=== PATIENT | male | born 1990 | race American Indian/Alaskan Native ===

== ENCOUNTER 2019-12-19 22:41 | Emergency (ER) | payer MEDICARE ==
[2019-12-19] MEDS ORDERED: ZIPRASIDONE MESYLATE 20 MG VIAL IM ONE (22:55)
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
[2019-12-20 00:18] LABS: Basophils # (Auto) 0.1 K/mm3 (0.0-0.1); Basophils % (Auto) 0.8 % (0.0-1.8); Eosinophils # (Auto) 0.1 K/mm3 (0.0-0.4); Eosinophils % (Auto) 1.1 % (0.0-4.3); Hematocrit 40.8 % (35.5-45.6); Hemoglobin 13.5 gm/dl (11.8-15.2); Lymphocytes # (Auto) 3.5 K/mm3 (1.2-5.4); Lymphocytes % (Auto) 27.7 % (13.4-35.0); Mean Corpuscular HGB Conc 33 % (32-34); Mean Corpuscular Volume 84 fl (84-94); Monocytes # (Auto) 0.9 K/mm3 (0.0-0.8); Platelet Count 261 K/mm3 (140-440); Red Blood Count 4.88 M/mm3 (3.65-5.03); Red Cell Distribution Width 15.5 % (13.2-15.2)
[2019-12-20 00:31] LABS: Blood Urea Nitrogen 4 mg/dL (9-20); Calcium 9.2 mg/dL (8.4-10.2); Hemolysis Index 7
[2019-12-20 00:52] LABS: BUN/Creatinine Ratio 6
[2019-12-20 01:25] LABS: Bilirubin,Urine NEG (Negative); Blood,Urine SM (Negative); Color,Urine Colorless (Yellow); Protein,Urine <15 mg/dL mg/dL (Negative); Urobilinogen,Urine < 2.0 mg/dL (<2.0); WBC,Urine < 1.0 /HPF (0.0-6.0)
[2019-12-20 01:33] LABS: Amphetamine Screen,Urine PRESUMPTIVE NEGATIVE; Benzodiazepines Screen,Urine PRESUMPTIVE NEGATIVE; Cannabinoid Screen,Urine PRESUMPTIVE NEGATIVE; Cocaine Screen,Urine PRESUMPTIVE NEGATIVE; Methadone Screen,Urine PRESUMPTIVE NEGATIVE; Opiate Screen,Urine PRESUMPTIVE NEGATIVE
[2019-12-20] MEDS ORDERED: ZIPRASIDONE MESYLATE 20 MG VIAL IM ONE (03:17)
[2019-12-20 08:49] VITALS: BP 121/68
[2019-12-20] MEDS ORDERED: HALOPERIDOL LACTATE 5 MG/1 ML INJ IM PRN (14:07)
[2019-12-20] MEDS ORDERED: hydrOXYzine PAMOATE 25 MG CAP PO PRN (14:07)
[2019-12-20] MEDS ORDERED: LORazepam 2 MG/ML VIAL IM PRN (14:07)
[2019-12-20] MEDS ORDERED: HALOPERIDOL LACTATE 5 MG/1 ML INJ ONE (14:08)
== END 2019-12-20 16:16 ==
LOC: ED 22:41
DX: F25.0 Schizoaffective disorder, bipolar type (principal); R45.1 Restlessness and agitation
CPT/HCPCS: 36415; 80048; 80307; 81001; 85025; 96372; 99285; J1630; J2060; J3486; 80320; G0480

== ENCOUNTER 2020-05-20 15:51 | Inpatient (IN) | payer MEDICARE ==
--- NOTE | 2020-05-20 16:42 | Event Note ---
ED Screening Note Date of service: 05/20/20 Time: 16:41 ED Screening Note: 29-year-old male presents the emergency department chief complaint of bilateral lower extremity swelling, abdominal swelling, shortness of breath. Patient is from a transitional home. Denies any history of congestive heart failure. Exam is consistent with significant diffuse edema bilateral lower extremities extending all the way up to the mid abdomen. The patient has labored breathing. Lung sounds are diminished bilaterally. He is tachycardic. Requested bed from charge nurse immediately. This initial assessment/diagnostic orders/clinical plan/treatment(s) is/are subject to change based on patients health status, clinical progression and re- assessment by fellow clinical providers in the ED. Further treatment and workup at subsequent clinical providers discretion. Patient/guardian urged not to elope from the ED as their condition may be serious if not clinically assessed and managed. Initial orders include: Cardiac work-up, BNP
[2020-05-20] MEDS ORDERED: ALBUTEROL 2.5 MG/3 ML NEBU IH ONE (17:23)
[2020-05-20] MEDS ORDERED: IPRATROPIUM 0.02% NEBU 2.5 ML IH ONE (17:23)
[2020-05-20] MEDS ORDERED: FUROSEMIDE 40 MG/4 ML INJ IV ONE ×2 (17:23→18:20)
--- NOTE | 2020-05-20 17:28 | Emergency Department Report ---
ED Shortness of Breath HPI - General Chief Complaint: Dyspnea/Respdistress Stated Complaint: ALLERGIC REACTION Time Seen by Provider: 05/20/20 17:23 Source: patient Mode of arrival: Wheelchair Limitations: No Limitations - History of Present Illness Initial Comments: Patient is a 29-year-old F [place] male with no known past medical history except for obesity who is presenting with shortness of breath and fluid retention. Patient states that approximately 2 weeks ago he started taking Hydroxycut and attempt to lose weight. Patient states over the last 3 to 4 days he has had progressively severely worsening shortness of breath and swelling. States the swelling now is through his abdomen down to his bilateral lower extremities including the groin. States he can not lay flat but can't sit up straight either. States he is very short of breath when lying flat but when attempting to sit straight up feels as though his abdomen is hindering him from sitting position. He denies any fevers chills nausea vomiting or diarrhea. Did have some abdominal discomfort as well that is associated with the swelling. - Related Data Home Medications Medication Instructions Recorded Confirmed Last Taken [place] Carbonate ER [Lithobid ER] 300 mg PO BID 12/20/19 12/20/19 Unknown Paliperidone Palmitate [Invega 156 mg IM QMONTH 12/20/19 12/20/19 Unknown Sustenna] buPROPion [Wellbutrin] 100 mg PO DAILY 12/20/19 12/20/19 Unknown hydrOXYzine PAMOATE [Vistaril] 25 mg PO Q6HR PRN 12/20/19 12/20/19 Unknown Allergies Allergy/AdvReac Type Severity Reaction Status Date / Time No Known Allergies Allergy Verified 12/20/19 03:26 ED Review of Systems ROS: Stated complaint: ALLERGIC REACTION Other details as noted in HPI Comment: All other systems reviewed and negative ED Past Medical Hx - Past Medical History Previous Medical History?: Yes Hx Psychiatric Treatment: Yes (bipolar, schizophrenia) - Surgical History Past Surgical History?: No - Medications Home Medications: Home Medications Medication Instructions Recorded Confirmed Last Taken Type Terra Bella Carbonate ER [Lithobid ER] 300 mg PO BID 12/20/19 12/20/19 Unknown History Paliperidone Palmitate [Invega 156 mg IM QMONTH 12/20/19 12/20/19 Unknown History Sustenna] buPROPion [Wellbutrin] 100 mg PO DAILY 12/20/19 12/20/19 Unknown History hydrOXYzine PAMOATE [Vistaril] 25 mg PO Q6HR PRN 12/20/19 12/20/19 Unknown History ED Physical Exam - General Limitations: No Limitations General appearance: alert, in distress - Head Head exam: Present: atraumatic, normocephalic - Eye Eye exam: Present: normal appearance, PERRL, EOMI - ENT ENT exam: Present: mucous membranes moist - Neck Neck exam: Present: normal inspection - Respiratory Respiratory exam: Present: respiratory distress, wheezes, rales. Absent: normal lung sounds bilaterally, rhonchi, stridor - Cardiovascular Cardiovascular Exam: Present: normal rhythm, tachycardia, normal heart sounds. Absent: systolic murmur, diastolic murmur, rubs, gallop - GI/Abdominal GI/Abdominal exam: Present: distended, normal bowel sounds. Absent: tenderness, guarding, rebound - Rectal Rectal exam: Present: deferred - Extremities Exam Extremities exam: Present: normal inspection, other (3+ edema to the bilateral lower extremities all the way up through the groin.) - Back Exam Back exam: Present: normal inspection - Neurological Exam Neurological exam: Present: alert, oriented X3 - Psychiatric Psychiatric exam: Present: normal affect, normal mood - Skin Skin exam: Present: warm, dry, intact, normal color. Absent: rash ED Course Vital Signs 05/20/20 05/20/20 16:37 18:17 Temperature 98.5 F Pulse Rate 126 H 126 H Respiratory 26 H Rate Blood Pressure 161/78 [Left] O2 Sat by Pulse 95 Oximetry ED Medical Decision Making - Lab Data Result diagrams: 05/20/20 16:42 05/20/20 16:42 - EKG Data -: EKG Interpreted by Mn - EKG Data 05/20/20 17:29 EKG shows a sinus tachycardia 121. [place] is normal intervals are normal. Is no ST segment elevations or depressions. There is some diffuse nonspecific T wave flattening. Time of interpretation 5559 - Radiology Data [facility] [address] [place] [address] XRay Report Signed Patient: MATTHEW PRASAD Corrine#: [id number] : 1990 Acct:[id number] Age/Sex: 29 / M ADM Date: 05/20/20 Loc: ED Attending Dr: Ordering Physician: KAI WHITAKER Date of Service: 05/20/20 Procedure(s): XR chest 1V ap Accession Number(s): [id number] cc: KAI WHITAKER Fluoro Time In Minutes: CHEST 1 VIEW 05/20/2020 5:14 PM INDICATION / CLINICAL INFORMATION: Dyspnea. COMPARISON: None available. FINDINGS: SUPPORT DEVICES: None. HEART / MEDIASTINUM: The cardiac silhouette is at the upper limits of normal size. There is central vascular congestion. LUNGS / PLEURA: There are mild bilateral interstitial opacities with more dense opacities noted along the right lung base. The right hemidiaphragm is elevated. No significant pleural effusion. No pneumothorax. ADDITIONAL FINDINGS: No significant additional findings. IMPRESSION: Prominent cardiac silhouette with central vascular congestion and probable pulm onary edema. Please correlate with the clinical findings. Signer Name: Neftali Clark MD Signed: 05/20/2020 5:49 PM Workstation Name: [id number] - Medical Decision Making Patient laboratory studies show no evidence of renal or liver failure. Patient does have significant pulmonary edema and anasarca. Patient be admitted for IV Lasix and he will definitely need a echocardiogram to determine the level of heart failure. Patient be admitted to the hospitalist service at this time. Critical Care Time: Yes (30) Critical care attestation.: If time is entered above; I have spent that time in minutes in the direct care of this critically ill patient, excluding procedure time. ED Disposition Clinical Impression: New onset of congestive heart failure, Acute respiratory distress Pulmonary edema Qualifiers: Chronicity: acute Qualified Code(s): J81.0 - Acute pulmonary edema Disposition: OP ADMIT IP TO THIS HOSP Is pt being admited?: Yes Does the pt Need Aspirin: No Condition: Stable Instructions: Pulmonary Edema (ED) Time of Disposition: 18:26
[2020-05-20 17:33] LABS: Basophils # (Auto) 0.2 K/mm3 (0.0-0.1); Basophils % (Auto) 1.5 % (0.0-1.8); Eosinophils # (Auto) 0.2 K/mm3 (0.0-0.4); Eosinophils % (Auto) 1.7 % (0.0-4.3); Hematocrit 34.7 % (35.5-45.6); Hemoglobin 11.2 gm/dl (11.8-15.2); Lymphocytes # (Auto) 2.4 K/mm3 (1.2-5.4); Lymphocytes % (Auto) 17.2 % (13.4-35.0); Mean Corpuscular HGB Conc 32 % (32-34); Mean Corpuscular Volume 86 fl (84-94); Monocytes # (Auto) 1.3 K/mm3 (0.0-0.8); Monocytes % (Auto) 9.4 % (0.0-7.3); Platelet Count 324 K/mm3 (140-440); Red Blood Count 4.04 M/mm3 (3.65-5.03); Red Cell Distribution Width 15.7 % (13.2-15.2)
[2020-05-20 17:48] LABS: INR 0.96 (0.87-1.13)
[2020-05-20 17:53] LABS: Alanine Aminotransferase 6 units/L (7-56); Albumin 1.6 g/dL (3.9-5); Blood Urea Nitrogen 10 mg/dL (9-20); Calcium 7.6 mg/dL (8.4-10.2); Hemolysis Index 21
--- NOTE | 2020-05-20 17:53 | XRay Report ---
CHEST 1 VIEW 05/20/2020 5:14 PM INDICATION / CLINICAL INFORMATION: Dyspnea. COMPARISON: None available. FINDINGS: SUPPORT DEVICES: None. HEART / MEDIASTINUM: The cardiac silhouette is at the upper limits of normal size. There is central v ascular congestion. LUNGS / PLEURA: There are mild bilateral interstitial opacities with more dense opacities noted along the right lung base. The right hemidiaphragm is elevated. No significant pleural effusion. No pneumo thorax. ADDITIONAL FINDINGS: No significant additional findings. IMPRESSION: Prominent cardiac silhouette with central vascular congestion and probable pulmonary edema. Please co rrelate with the clinical findings. Signer Name: Neftali Clark MD Signed: 05/20/2020 5:49 PM Workstation Name: [id number]
[2020-05-20 17:57] LABS: BUN/Creatinine Ratio 14
[2020-05-21] MEDS ORDERED: NITROGLYCERIN 0.4 MG TAB SUBL SL PRN (02:32)
[2020-05-21] MEDS ORDERED: ALBUTEROL 2.5 MG/3 ML NEBU IH PRN (02:37)
--- NOTE | 2020-05-21 02:44 | History and Physical Report ---
History of Present Illness Date of examination: 05/20/20 Date of admission: 05/20/20 18:26 Chief complaint: HAILEY, anasarca History of present illness: 29-year-old obese -[place] male with history of schizophrenia and bipolar disorder who presents to [facility] ED via EMS with complaints of difficulty in breathing and generalized edema. Patient complains of progressively worsening shortness of breath over the past 3 to 4 days. He states that he is on able to ambulate, or perform routine ADLs due to significant shortness of breath. Additionally he complains of generalized edema, which started in his lower extremities and has progressed up to his groin and abdomen. Endorses orthopnea, PND, and impaired mobility due to current state. Patient mentioned he started taking Hydroxycut (OTC weight loss supplement) approximately 2 weeks ago and thinks that this may have contributed to his shortness of breath and generalized edema. Denies: Cardiac history, palpitations, fever, abdominal pain, diarrhea, nausea, headache, sore throat, loss of smell/taste, recent fall/injury, recent sick contacts Past History Past Medical History: other (Bipolar, schizophrenia, obesity) Past Surgical History: No surgical history Social history: single, Lives alone, smoking, full code. denies: alcohol abuse, prescription drug abuse, IV drug use Family history: no significant family history Medications and Allergies Allergies Allergy/AdvReac Type Severity Reaction Status Date / Time No Known Allergies Allergy Verified 12/20/19 03:26 Home Medications Medication Instructions Recorded Confirmed Last Taken Type Paliperidone Palmitate [Invega 156 mg IM QMONTH 12/20/19 12/20/19 Unknown History Sustenna] Divalproex ER [DepaKOTE ER] 1,500 mg PO QHS 05/21/20 05/21/20 05/19/20 History Active Meds: Active Medications Albuterol (Albuterol 2.5 Mg/3 Ml Nebu) 2.5 mg IH Q4HRT PRN PRN Reason: Shortness Of Breath Albuterol/Ipratropium (Ipratropium/Albuterol Sulfate 3 Ml Ampul.Neb) 1 ampul IH Q4HRT LAURY Bupropion HCl (Bupropion 100 Mg Tab) 100 mg PO DAILY LAURY Carvedilol (Carvedilol 3.125 Mg Tab) 3.125 mg PO BID LAURY Furosemide (Furosemide 40 Mg/4 Ml Inj) 40 mg IV BID@0600,1800 LAURY Heparin Sodium (Porcine) (Heparin 5,000 Unit/1 Ml Vial) 5,000 unit SUB-Q Q12HR LAURY Lisinopril (Lisinopril 10 Mg Tab) 10 mg PO QDAY LAURY Nitroglycerin (Nitroglycerin 0.4 Mg Tab Subl) 0.4 mg SL .Q5MIN PRN PRN Reason: Chest Pain Review of Systems All systems: negative (Except as noted in HPI) Exam - Physical Exam Narrative exam: Physical exam General appearance: Present: Mild distress,, alert and oriented 3, adult male - EENT Eyes: Present: PERRL, EOM intact ENT: hearing intact, normal dentition - Neck Neck: Present: supple, normal ROM - Respiratory Respiratory effort: Slightly labored Respiratory: Faint bibasilar crackles, scattered wheezing - Cardiovascular Heart rate: 1098(bpm) Rhythm: Sinus tachycardia Heart Sounds: Present: S1 & S2. Absent: rub, click - Extremities Extremities: no ischemia, pulses intact, 3+ bilateral lower extremity edema extending up to the scrotum and abdomen - Peripheral Assessment Peripheral Pulses: within normal limits - Abdominal General gastrointestinal: soft, non-tender, normal bowel sounds - Integumentary Integumentary: Present: warm, dry - Musculoskeletal Musculoskeletal: Limited mobility due to current state, ambulates with cane -Neurological Neurological: CN II-XII intact - Psychiatric Psychiatric: cooperative - Constitutional Vitals: Temp Pulse Resp BP Pulse Ox 98 F 101 H 17 137/79 94 05/20/20 19:30 05/21/20 02:00 05/21/20 02:00 05/21/20 02:00 05/21/20 02:00 HEART Score - HEART Score Troponin: Troponin T < 0.010 ng/mL (0.00-0.029) 05/21/20 00:23 Results - Labs CBC & Chem 7: 05/20/20 16:42 05/20/20 16:42 Labs: Laboratory Last Values WBC 13.8 K/mm3 (4.5-11.0) H 05/20/20 16:42 RBC 4.04 M/mm3 (3.65-5.03) 05/20/20 16:42 Hgb 11.2 gm/dl (11.8-15.2) L 05/20/20 16:42 Hct 34.7 % (35.5-45.6) L 05/20/20 16:42 MCV 86 fl (84-94) 05/20/20 16:42 MCH 28 pg (28-32) 05/20/20 16:42 MCHC 32 % (32-34) 05/20/20 16:42 RDW 15.7 % (13.2-15.2) H 05/20/20 16:42 Plt Count 324 K/mm3 (140-440) 05/20/20 16:42 Lymph % (Auto) 17.2 % (13.4-35.0) 05/20/20 16:42 Gilliam % (Auto) 9.4 % (0.0-7.3) H 05/20/20 16:42 Eos % (Auto) 1.7 % (0.0-4.3) 05/20/20 16:42 Baso % (Auto) 1.5 % (0.0-1.8) 05/20/20 16:42 Lymph # (Auto) 2.4 K/mm3 (1.2-5.4) 05/20/20 16:42 Gilliam # (Auto) 1.3 K/mm3 (0.0-0.8) H 05/20/20 16:42 Eos # (Auto) 0.2 K/mm3 (0.0-0.4) 05/20/20 16:42 Baso # (Auto) 0.2 K/mm3 (0.0-0.1) H 05/20/20 16:42 Seg Neutrophils % 70.2 % (40.0-70.0) H 05/20/20 16:42 Seg Neutrophils # 9.7 K/mm3 (1.8-7.7) H 05/20/20 16:42 PT 12.7 Sec. (12.2-14.9) 05/20/20 16:42 INR 0.96 (0.87-1.13) 05/20/20 16:42 APTT 26.0 Sec. (24.2-36.6) 05/20/20 16:42 Sodium 136 mmol/L (137-145) L 05/20/20 16:42 Potassium 4.2 mmol/L (3.6-5.0) 05/20/20 16:42 Chloride 104.6 mmol/L (98-107) 05/20/20 16:42 Carbon Dioxide 23 mmol/L (22-30) 05/20/20 16:42 Anion Gap 13 mmol/L 05/20/20 16:42 BUN 10 mg/dL (9-20) 05/20/20 16:42 Creatinine 0.7 mg/dL (0.8-1.3) L 05/20/20 16:42 Estimated GFR > 60 ml/min 05/20/20 16:42 BUN/Creatinine Ratio 14 % 05/20/20 16:42 Glucose 110 mg/dL (75-100) H 05/20/20 16:42 Calcium 7.6 mg/dL (8.4-10.2) L 05/20/20 16:42 Magnesium 2.00 mg/dL (1.7-2.3) 05/20/20 16:42 Total Bilirubin < 0.20 mg/dL (0.1-1.2) 05/20/20 16:42 AST 10 units/L (5-40) 05/20/20 16:42 ALT 6 units/L (7-56) L 05/20/20 16:42 Alkaline Phosphatase 79 units/L (35-129) 05/20/20 16:42 Troponin T < 0.010 ng/mL (0.00-0.029) 05/21/20 00:23 NT-Pro-B Natriuret Pep 119.3 pg/mL (0-450) 05/20/20 19:59 Total Protein 4.6 g/dL (6.3-8.2) L 05/20/20 16:42 Albumin 1.6 g/dL (3.9-5) L 05/20/20 16:42 Albumin/Globulin Ratio 0.5 % 05/20/20 16:42 - Diagnostic Impressions Diagnostic Impressions: CXR: FINDINGS: SUPPORT DEVICES: None. HEART / MEDIASTINUM: The cardiac silhouette is at the upper limits of normal size. There is central vascular congestion. LUNGS / PLEURA: There are mild bilateral interstitial opacities with more dense opacities noted along the right lung base. The right hemidiaphragm is elevated. No significant pleural effusion. No pneumothorax. ADDITIONAL FINDINGS: No sign ificant additional findings. IMPRESSION: Prominent cardiac silhouette with central vascular congestion and probable pulmonary edema. Please correlate with the clinical findings. Assessment and Plan Assessment and plan: Acute hypoxic respiratory failure -No Baseline home oxygen requirements -Saturation in low to mid 80s on room air -?? Obesity hypoventilation syndrome, may benefit from outpatient pulmonary work-up -Currently on supplemental -Monitor saturations -Continue supplemental oxygen wean as tolerated -Scheduled duo nebs, albuterol as needed New Onset Acute Exacerbation CHF- -EF unknown -Echo pending -BNP not elevated at 119 -Troponin negative x3 -CXR shows vascular congestion -Continue IV Lasix -Start LUIS, BB -Cardiology consulted -f/u on pending labs Pulmonary edema -CXR shows vascular congestion suggestive of pulmonary edema -On examination pt has anasarca, 3+ scrotal edema -Diuresis with IV Lasix -Cardiology consulted -Leukocytosis -WBC on admission 13.8 -Afebrile -Cultures pending -Will hold off on starting abx for now -Continue to monitor CBC History of schizophrenia and bipolar disorder -Resume Wellbutrin -Home medication reconciliation will need to be completed before resuming any other antipsychotic meds -Day team may consider mental health consult Tobacco abuse -Current every day smoker -Counseled for cessation -Nicotine patch when necessary DVT PPX -On SCD's and Heparin Advance Directives: No VTE prophylaxis?: Chemical, Mechanical Reason for no VTE Prophylaxis: Anticoagulant allergy Plan of care discussed with patient/family: Yes
[2020-05-21] MEDS ORDERED: NICOTINE 14 MG/24 HR PATCH TD PRN (02:58)
[2020-05-21] MEDS: FUROSEMIDE 40 MG/4 ML INJ IV SCH ×2 (06:44→17:17)
[2020-05-21] MEDS: IPRATROPIUM/ALBUTEROL SULFATE 3 ML AMPUL.NEB IH SCH ×5 (09:04→20:12)
[2020-05-21] MEDS: LISINOPRIL 10 MG TAB PO SCH (09:12)
[2020-05-21] MEDS: carvediloL 3.125 MG TAB PO SCH ×2 (09:16→23:58)
[2020-05-21] MEDS: buPROPion 100 MG TAB PO SCH (09:16)
[2020-05-21] MEDS ORDERED: HEPARIN 5,000 UNIT/1 ML VIAL SUB-Q SCH (10:00)
[2020-05-21 10:09] LABS: Bilirubin,Urine NEG (Negative); Blood,Urine MOD (Negative); Color,Urine Yellow (Yellow); Urobilinogen,Urine < 2.0 mg/dL (<2.0)
[2020-05-21 10:16] LABS: Amphetamine Screen,Urine Negative; Benzodiazepines Screen,Urine Negative; Cannabinoid Screen,Urine Negative; Cocaine Screen,Urine Negative; Methadone Screen,Urine Negative; Opiate Screen,Urine Negative
[2020-05-21] MEDS ORDERED: HEPARIN 10,000 UNITS/10 ML VIAL IV ONE (12:08)
[2020-05-21] MEDS: HEPARIN/ 0.45% NACL DRIP 25,000 UNIT/500 ML BAG IV SCH (13:53)
[2020-05-21 14:26] LABS: Hematocrit 32.6 % (35.5-45.6); Hemoglobin 10.5 gm/dl (11.8-15.2)
[2020-05-21 14:37] LABS: INR 0.99 (0.87-1.13)
[2020-05-21 14:38] LABS: Partial Thromboplastin Time 27.8 Sec. (24.2-36.6)
--- NOTE | 2020-05-21 14:52 | Consultation ---
History of Present Illness Consult date: 05/21/20 Requesting physician: PENELOPE GRACE Consult reason: congestive heart failure History of present illness: This pt is a 29 year old male with a significant hx of morbid obesity, bipolar disorder and schizophrenia. He is previously unknown to our practice. Pt presents to [facility] with c/o SOB x 4 days and diffuse lower extremity and abd swelling. Pt states he recently began taking diet supplement Hydroxycut for the last 2 weeks. He endorsed orthopnea with SOB lying supine, but also when sitting up straight due to abd distention. He denies any prior medical issues. No Chest pain, syncope, dizziness, N/V/D or recent illness. On exam pt is noted to have diffuse anasarca to BLE and ABD. PT is admitted as a Covid PUI. CXR shows pulmonary edema. Echo is pending. BNP and troponins are noted to be normal, Ddimer is elevated on admission. Past History Past Medical History: other (Bipolar, schizophrenia, obesity) Past Surgical History: No surgical history Social history: single, Lives alone, smoking, full code. denies: alcohol abuse, prescription drug abuse, IV drug use Family history: no significant family history Medications and Allergies Allergies Allergy/AdvReac Type Severity Reaction Status Date / Time No Known Allergies Allergy Verified 12/20/19 03:26 Home Medications Medication Instructions Recorded Confirmed Last Taken Type Paliperidone Palmitate [Invega 156 mg IM QMONTH 12/20/19 05/21/20 05/10/20 History Sustenna] Divalproex ER [DepaKOTE ER] 1,500 mg PO QHS 05/21/20 05/21/20 05/19/20 History Active Meds: Active Medications Albuterol (Albuterol 2.5 Mg/3 Ml Nebu) 2.5 mg IH Q4HRT PRN PRN Reason: Shortness Of Breath Albuterol/Ipratropium (Ipratropium/Albuterol Sulfate 3 Ml Ampul.Neb) 1 ampul IH Q4HRT [facility] Last Admin: 05/21/20 14:11 Dose: 1 ampul Documented by: Bupropion HCl (Bupropion 100 Mg Tab) 100 mg PO DAILY [facility] Last Admin: 05/21/20 09:16 Dose: 100 mg Documented by: Carvedilol (Carvedilol 3.125 Mg Tab) 3.125 mg PO BID [facility] Last Admin: 05/21/20 09:16 Dose: 3.125 mg Documented by: Furosemide (Furosemide 40 Mg/4 Ml Inj) 40 mg IV BID@0600,1800 [facility] Last Admin: 05/21/20 06:44 Dose: 40 mg Documented by: Heparin Sodium (Porcine) (Heparin 10,000 Units/10 Ml Vial) 5,500 unit 40 unit/kg (5500 unit) IV Q6H PRN PRN Reason: Anti-Xa Assay < 0.1 units/ml Heparin Sodium/Sodium Chloride (Heparin/ 0.45% Nacl-25,000 Unit/500 Ml) 25,000 unit in 500 mls @ 30 mls/hr IV TITR [facility]; Protocol Last Admin: 05/21/20 13:53 Dose: 1,500 units/hr, 30 mls/hr Documented by: Lisinopril (Lisinopril 10 Mg Tab) 10 mg PO QDAY [facility] Last Admin: 05/21/20 09:12 Dose: 10 mg Documented by: Nicotine (Nicotine 14 Mg/24 Hr Patch) 14 mg TD QDAY PRN PRN Reason: smoking cessation Review of Systems Constitutional: no weight loss, no weight gain, no fever, no chills, no sweats Ears, nose, mouth and throat: no ear pain, no ear discharge, no nasal congestion, no nasal discharge, no sinus pressure Cardiovascular: orthopnea, edema, shortness of breath, leg edema, no chest pain, no palpitations, no rapid/irregular heart beat, no syncope, no lightheadedness Respiratory: sleep apnea, no cough, no hemoptysis, no shortness of breath, no dyspnea on exertion Gastrointestinal: no abdominal pain, no nausea, no vomiting, no diarrhea Musculoskeletal: no neck pain, no shooting arm pain, no arm numbness/tingling, no low back pain, no shooting leg pain, no leg numbness/tingling Integumentary: no rash, no pruritis, no redness, no sores, no wounds Neurological: no head injury, no paralysis, no weakness, no parathesias, no numbness, no tingling, no seizures, no syncope Psychiatric: no anxiety Endocrine: no cold intolerance, no heat intolerance Hematologic/Lymphatic: no easy bruising, no easy bleeding Allergic/Immunologic: no urticaria Physical Examination Last Vital Signs Temp 98.7 F 05/21/20 12:00 Pulse 118 H 05/21/20 14:40 Resp 20 05/21/20 14:40 BP 150/92 05/21/20 14:40 Pulse Ox 97 05/21/20 14:40 General appearance: mild distress HEENT: Positive: PERRL, Normocephaly, Mucus Membranes Moist Neck: Positive: neck supple, trachea midline Cardiac: Positive: Reg Rate and Rhythm, S1/S2 Lungs: Positive: clear to auscultation, Normal Breath Sounds Neuro: Positive: Grossly Intact Abdomen: Positive: Distended Skin: Negative: Rash, Wound Musculoskeletal: No Pain Extremities: Present: upper extr. pulses, lower extr. pulses, +4 Edema Results 05/21/20 13:52 05/20/20 16:42 Cardiac Enzymes 05/20/20 05/21/20 Range/Units 16:42 03:00 AST 10 (5-40) units/L Lactate Dehydrogenase 179 (91-180) units/L Coagulation 05/20/20 05/21/20 Range/Units 16:42 13:52 PT 12.7 13.0 (12.2-14.9) Sec. INR 0.96 0.99 (0.87-1.13) APTT 26.0 27.8 (24.2-36.6) Sec. CBC 05/20/20 05/21/20 Range/Units 16:42 13:52 WBC 13.8 H (4.5-11.0) K/mm3 RBC 4.04 (3.65-5.03) M/mm3 Hgb 11.2 L 10.5 L (11.8-15.2) gm/dl Hct 34.7 L 32.6 L (35.5-45.6) % Plt Count 324 290 (140-440) K/mm3 Lymph # (Auto) 2.4 (1.2-5.4) K/mm3 [place] # (Auto) 1.3 H (0.0-0.8) K/mm3 Eos # (Auto) 0.2 (0.0-0.4) K/mm3 Baso # (Auto) 0.2 H (0.0-0.1) K/mm3 Comprehensive Metabolic Panel 05/20/20 Range/Units 16:42 Sodium 136 L (137-145) mmol/L Potassium 4.2 (3.6-5.0) mmol/L Chloride 104.6 (98-107) mmol/L Carbon Dioxide 23 (22-30) mmol/L BUN 10 (9-20) mg/dL Creatinine 0.7 L (0.8-1.3) mg/dL Glucose 110 H (75-100) mg/dL Calcium 7.6 L (8.4-10.2) mg/dL AST 10 (5-40) units/L ALT 6 L (7-56) units/L Alkaline Phosphatase 79 (35-129) units/L Total Protein 4.6 L (6.3-8.2) g/dL Albumin 1.6 L (3.9-5) g/dL - Imaging and Cardiology Echo: pending EKG interpretations - Telemetry EKG Rhythm: Sinus Tachycardia Assessment and Plan This pt is a 29 year old male with a significant hx of morbid obesity, bipolar disorder and schizophrenia. He is previously unknown to our practice. Pt presents to [facility] with c/o SOB x 4 days and diffuse lower extremity and abd swelling. Pt states he recently began taking diet supplement Hydroxycut for the last 2 weeks. He endorsed orthopnea with SOB lying supine, but also when sitting up straight due to abd distention. He denies any prior medical issues. No Chest pain, syncope, dizziness, N/V/D or recent illness. On exam pt is noted to have diffuse anasarca to BLE and ABD. PT is admitted as a Covid PUI. CXR shows pulmonary edema. BNP and troponins are noted to be normal. Ddimer is noted to be elevated. Recommend Confirmatory imaging if/when pt can tolerate. Initiate heparin gtt in setting of presumed PTE. Continue diuresis. Agree with lasix 40mg IV BID. Suspect JONA. Order placed for CPAP QHS. Echo is pending. Continue supportive care. Will follow. This pt was seen in conjunction with Dr Navarrete who agrees with this assessment and plan of care. - Patient Problems (1) Allergic reaction Current Visit: Yes Status: Acute (2) Pulmonary edema Current Visit: Yes Status: Acute Qualifiers: Chronicity: acute Qualified Code(s): J81.0 - Acute pulmonary edema (3) Anasarca Current Visit: Yes Status: Acute (4) Morbid obesity Current Visit: Yes Status: Chronic (5) Schizophrenia Current Visit: Yes Status: Chronic (6) Bipolar 1 disorder Current Visit: Yes Status: Chronic
--- NOTE | 2020-05-21 15:45 | Progress Note ---
Assessment and Plan Assessment and plan: 29-year-old obese -Marshallese male with history of schizophrenia and bipolar disorder who presents to [facility] ED via EMS with complaints of difficulty in breathing and generalized edema. Patient was taking Hydroxycut (OTC weight loss supplement) approximately 2 weeks ago, believes this has something to do with this anasarca. Patient admitted for heart failure work-up. Acute hypoxic respiratory failure -Continue supplemental oxygen wean as tolerated -Scheduled duo nebs, albuterol as needed CTA pending to rule out PE Elevated D-dimer CTA pending to r/o PE New Onset Acute Exacerbation CHF -Echo pending -BNP not elevated at 119 -Troponin negative x3 -CXR shows vascular congestion -Continue IV Lasix -Start LUIS, BB -Cardiology consulted Pulmonary edema -CXR shows vascular congestion suggestive of pulmonary edema -On examination pt has anasarca, 3+ scrotal edema -Diuresis with IV Lasix -Cardiology consulted -Leukocytosis -WBC on admission 13.8 Covid negative -Afebrile -Blood cultures pending -Continue to monitor CBC History of schizophrenia and bipolar disorder -Resume Wellbutrin -Home medication reconciliation will need to be completed before resuming any other antipsychotic meds Mood is stable Tobacco abuse -Counseled for cessation -Nicotine patch as needed DVT PPX -On SCD's and Heparin History Interval history: 05/21 patient seen, continues to have significant anasarca. Patient is refusing Moe catheter. Hospitalist Physical - Physical exam Narrative exam: General appearance: Morbidly obese, no acute distress, well-nourished EENT: PERRL, EOM intact, hearing intact, clear oral mucosa, dentition normal Respiratory: bilateral: Diminished breath sounds due to body habitus, negative: rales, rhonchi, wheezing Cardiovascular: Regular rate/rhythm, Normal S1 & S2. No gallop, rub Extremities: Severe bilateral edema in lower extremities Abdominal: soft, firm, diminished bowel sounds : Significant scrotal edema and penile edema Psychiatric: appropriate mood/affect, intact judgment & insight Neurologic: CNII-XII intact, moves all extremities - Constitutional Vitals: Temp Pulse Resp BP Pulse Ox 98.7 F 118 H 20 150/92 97 05/21/20 12:00 05/21/20 14:40 05/21/20 14:40 05/21/20 14:40 05/21/20 14:40 General appearance: Present: mild distress HEART Score - HEART Score Troponin: Troponin T < 0.010 ng/mL (0.00-0.029) 05/21/20 00:23 Results - Labs CBC & Chem 7: 05/21/20 13:52 05/20/20 16:42 Labs: Laboratory Last Values WBC 13.8 K/mm3 (4.5-11.0) H 05/20/20 16:42 RBC 4.04 M/mm3 (3.65-5.03) 05/20/20 16:42 Hgb 10.5 gm/dl (11.8-15.2) L 05/21/20 13:52 Hct 32.6 % (35.5-45.6) L 05/21/20 13:52 MCV 86 fl (84-94) 05/20/20 16:42 MCH 28 pg (28-32) 05/20/20 16:42 MCHC 32 % (32-34) 05/20/20 16:42 RDW 15.7 % (13.2-15.2) H 05/20/20 16:42 Plt Count 290 K/mm3 (140-440) 05/21/20 13:52 Lymph % (Auto) 17.2 % (13.4-35.0) 05/20/20 16:42 [place] % (Auto) 9.4 % (0.0-7.3) H 05/20/20 16:42 Eos % (Auto) 1.7 % (0.0-4.3) 05/20/20 16:42 Baso % (Auto) 1.5 % (0.0-1.8) 05/20/20 16:42 Lymph # (Auto) 2.4 K/mm3 (1.2-5.4) 05/20/20 16:42 [place] # (Auto) 1.3 K/mm3 (0.0-0.8) H 05/20/20 16:42 Eos # (Auto) 0.2 K/mm3 (0.0-0.4) 05/20/20 16:42 Baso # (Auto) 0.2 K/mm3 (0.0-0.1) H 05/20/20 16:42 Seg Neutrophils % 70.2 % (40.0-70.0) H 05/20/20 16:42 Seg Neutrophils # 9.7 K/mm3 (1.8-7.7) H 05/20/20 16:42 PT 13.0 Sec. (12.2-14.9) 05/21/20 13:52 INR 0.99 (0.87-1.13) 05/21/20 13:52 APTT 27.8 Sec. (24.2-36.6) 05/21/20 13:52 D-Dimer 3507.99 ng/mlDDU (0-234) H 05/21/20 04:45 Sodium 136 mmol/L (137-145) L 05/20/20 16:42 Potassium 4.2 mmol/L (3.6-5.0) 05/20/20 16:42 Chloride 104.6 mmol/L (98-107) 05/20/20 16:42 Carbon Dioxide 23 mmol/L (22-30) 05/20/20 16:42 Anion Gap 13 mmol/L 05/20/20 16:42 BUN 10 mg/dL (9-20) 05/20/20 16:42 Creatinine 0.7 mg/dL (0.8-1.3) L 05/20/20 16:42 Estimated GFR > 60 ml/min 05/20/20 16:42 BUN/Creatinine Ratio 14 % 05/20/20 16:42 Glucose 110 mg/dL (75-100) H 05/20/20 16:42 Hemoglobin A1c 5.5 % (4-6) 05/21/20 03:00 Lactic Acid 1.00 mmol/L (0.7-2.0) 05/21/20 03:00 Calcium 7.6 mg/dL (8.4-10.2) L 05/20/20 16:42 Magnesium 2.00 mg/dL (1.7-2.3) 05/20/20 16:42 Ferritin 147.0 ng/mL (30.0-300.0) 05/21/20 03:00 Total Bilirubin < 0.20 mg/dL (0.1-1.2) 05/20/20 16:42 AST 10 units/L (5-40) 05/20/20 16:42 ALT 6 units/L (7-56) L 05/20/20 16:42 Alkaline Phosphatase 79 units/L (35-129) 05/20/20 16:42 Lactate Dehydrogenase 179 units/L (91-180) 05/21/20 03:00 Troponin T < 0.010 ng/mL (0.00-0.029) 05/21/20 00:23 NT-Pro-B Natriuret Pep 119.3 pg/mL (0-450) 05/20/20 19:59 Total Protein 4.6 g/dL (6.3-8.2) L 05/20/20 16:42 Albumin 1.6 g/dL (3.9-5) L 05/20/20 16:42 Albumin/Globulin Ratio 0.5 % 05/20/20 16:42 Urine Color Yellow (Yellow) 05/21/20 09:30 Urine Turbidity Hazy (Clear) 05/21/20 09:30 Urine pH 6.0 (5.0-7.0) 05/21/20 09:30 Ur Specific [place] 1.010 (1.003-1.030) 05/21/20 09:30 Urine Protein 100 mg/dl mg/dL (Negative) 05/21/20 09:30 Urine Glucose (UA) Neg mg/dL (Negative) 05/21/20 09:30 Urine Ketones Neg mg/dL (Negative) 05/21/20 09:30 Urine Blood Mod (Negative) 05/21/20 09:30 Urine Nitrite Neg (Negative) 05/21/20 09:30 Urine Bilirubin Neg (Negative) 05/21/20 09:30 Urine Urobilinogen < 2.0 mg/dL (<2.0) 05/21/20 09:30 Ur Leukocyte Esterase Neg (Negative) 05/21/20 09:30 Urine WBC (Auto) 4.0 /HPF (0.0-6.0) 05/21/20 09:30 Urine RBC (Auto) 10.0 /HPF (0.0-6.0) 05/21/20 09:30 U Epithel Cells (Auto) < 1.0 /HPF (0-13.0) 05/21/20 09:30 Urine Opiates Screen Negative 05/21/20 09:30 Urine Methadone Screen Negative 05/21/20 09:30 Ur Barbiturates Screen Negative 05/21/20 09:30 Ur Phencyclidine Scrn Negative 05/21/20 09:30 Ur Amphetamines Screen Negative 05/21/20 09:30 U Benzodiazepines Scrn Negative 05/21/20 09:30 Urine Cocaine Screen Negative 05/21/20 09:30 U Marijuana (THC) Screen Negative 05/21/20 09:30 Drugs of Abuse Note Disclamer 05/21/20 09:30 Coronavirus (PCR) Negative (Negative) 05/21/20 09:58 Microbiology: Microbiology 05/21/20 04:45 Peripheral/Venous Blood Culture - Preliminary Culture in Progress 05/21/20 03:00 Peripheral/Venous Blood Culture - Preliminary Culture in Progress Moe/IV: Voiding Method Urinal Active Medications - Current Medications Current Medications: Generic Name Dose Route Start Last Admin Trade Name Freq PRN Reason Stop Dose Admin Albuterol 2.5 mg 05/21/20 02:37 Albuterol 2.5 Mg/3 Ml Nebu IH Q4HRT PRN Shortness Of Breath Albuterol/Ipratropium 1 ampul 05/21/20 04:00 05/21/20 14:11 Ipratropium/Albuterol Sulfate 3 Ml Ampul.Neb IH 1 ampul Q4HRT LAURY Administration Bupropion HCl 100 mg 05/21/20 10:00 05/21/20 09:16 Bupropion 100 Mg Tab PO 100 mg DAILY LAURY Administration Carvedilol 3.125 mg 05/21/20 10:00 05/21/20 09:16 Carvedilol 3.125 Mg Tab PO 3.125 mg BID LAURY Administration Furosemide 40 mg 05/21/20 06:00 05/21/20 06:44 Furosemide 40 Mg/4 Ml Inj IV 40 mg BID@0600,1800 LA[facility]Y Administration Heparin Sodium (Porcine) 5,500 unit 05/21/20 12:08 Heparin 10,000 Units/10 Ml Vial 40 unit/kg (5500 unit) IV Q6H PRN Anti-Xa Assay < 0.1 units/ml Heparin Sodium/Sodium Chloride 25,000 unit in 500 mls @ 30 mls/hr 05/21/20 13:00 05/21/20 13:53 Heparin/ 0.45% Nacl-25,000 Unit/500 Ml IV 1,500 units/hr TITR LAURY 30 mls/hr Administration Protocol 1,500 UNITS/HR Lisinopril 10 mg 05/21/20 10:00 05/21/20 09:12 Lisinopril 10 Mg Tab PO 10 mg QDAY LAURY Administration Nicotine 14 mg 05/21/20 02:58 Nicotine 14 Mg/24 Hr Patch TD QDAY PRN smoking cessation
[2020-05-22] MEDS: IPRATROPIUM/ALBUTEROL SULFATE 3 ML AMPUL.NEB IH SCH (00:42)
[2020-05-22] MEDS: FUROSEMIDE 40 MG/4 ML INJ IV SCH ×2 (05:36→17:49)
[2020-05-22 06:18] LABS: BUN/Creatinine Ratio 15; Blood Urea Nitrogen 12 mg/dL (9-20); Calcium 7.2 mg/dL (8.4-10.2); Hemolysis Index 8
[2020-05-22] MEDS: carvediloL 3.125 MG TAB PO SCH (09:17)
[2020-05-22] MEDS: LISINOPRIL 10 MG TAB PO SCH (09:18)
[2020-05-22] MEDS: buPROPion 100 MG TAB PO SCH (09:18)
--- NOTE | 2020-05-22 10:48 | Progress Note ---
Assessment and Plan Assessment and plan: 29-year-old obese -[place] male with history of schizophrenia and bipolar disorder who presents to [facility] ED via EMS with complaints of difficulty in breathing and generalized edema. Patient was taking Hydroxycut (OTC weight loss supplement) approximately 2 weeks ago, believes this has something to do with this anasarca. Patient admitted for heart failure work-up. Acute hypoxic respiratory failure Diastolic heart failure Elevated D-dimer Leukocytosis Schizophrenia/bipolar disorder Tobacco abuse Hospital course: 05/21 patient seen, continues to have significant anasarca. Patient is refusing Moe catheter. 05/22. Left ventricular systolic function normal with EF of 55 to 60%. Mild diastolic dysfunction. RVSP 27 mmHg. Await cardiology evaluation. Continue Lasix, Coreg. Await CTA of the chest given elevated D-dimer. Continue empiric IV heparin for now. Patient with probable JONA/OHS. Covid testing negative. History Interval history: 29-year-old obese -[place] male with history of schizophrenia and bipolar disorder who presents to [facility] ED via EMS with complaints of difficulty in breathing and generalized edema. Patient was taking Hydroxycut (OTC weight loss supplement) approximately 2 weeks ago, believes this has something to do with this anasarca. Patient admitted for heart failure work-up. No new issues overnight Hospitalist Physical - Constitutional Vitals: Temp Pulse Resp BP Pulse Ox 98.5 F 107 H 18 137/68 96 05/22/20 08:09 05/22/20 09:18 05/22/20 08:09 05/22/20 09:18 05/22/20 08:09 General appearance: Present: mild distress HEART Score - HEART Score Troponin: Troponin T < 0.010 ng/mL (0.00-0.029) 05/21/20 00:23 Results - Labs CBC & Chem 7: 05/21/20 13:52 05/22/20 05:41 Labs: Laboratory Last Values WBC 13.8 K/mm3 (4.5-11.0) H 05/20/20 16:42 RBC 4.04 M/mm3 (3.65-5.03) 05/20/20 16:42 Hgb 10.5 gm/dl (11.8-15.2) L 05/21/20 13:52 Hct 32.6 % (35.5-45.6) L 05/21/20 13:52 MCV 86 fl (84-94) 05/20/20 16:42 MCH 28 pg (28-32) 05/20/20 16:42 MCHC 32 % (32-34) 05/20/20 16:42 RDW 15.7 % (13.2-15.2) H 05/20/20 16:42 Plt Count 290 K/mm3 (140-440) 05/21/20 13:52 Lymph % (Auto) 17.2 % (13.4-35.0) 05/20/20 16:42 [place] % (Auto) 9.4 % (0.0-7.3) H 05/20/20 16:42 Eos % (Auto) 1.7 % (0.0-4.3) 05/20/20 16:42 Baso % (Auto) 1.5 % (0.0-1.8) 05/20/20 16:42 Lymph # (Auto) 2.4 K/mm3 (1.2-5.4) 05/20/20 16:42 [place] # (Auto) 1.3 K/mm3 (0.0-0.8) H 05/20/20 16:42 Eos # (Auto) 0.2 K/mm3 (0.0-0.4) 05/20/20 16:42 Baso # (Auto) 0.2 K/mm3 (0.0-0.1) H 05/20/20 16:42 Seg Neutrophils % 70.2 % (40.0-70.0) H 05/20/20 16:42 Seg Neutrophils # 9.7 K/mm3 (1.8-7.7) H 05/20/20 16:42 PT 13.0 Sec. (12.2-14.9) 05/21/20 13:52 INR 0.99 (0.87-1.13) 05/21/20 13:52 APTT 27.8 Sec. (24.2-36.6) 05/21/20 13:52 D-Dimer 3507.99 ng/mlDDU (0-234) H 05/21/20 04:45 Heparin Anti-Xa Level 0.10 U.I./ml (0.3-0.7) L 05/22/20 05:41 Sodium 139 mmol/L (137-145) 05/22/20 05:41 Potassium 4.5 mmol/L (3.6-5.0) 05/22/20 05:41 Chloride 104.8 mmol/L (98-107) 05/22/20 05:41 Carbon Dioxide 27 mmol/L (22-30) 05/22/20 05:41 Anion Gap 12 mmol/L 05/22/20 05:41 BUN 12 mg/dL (9-20) 05/22/20 05:41 Creatinine 0.8 mg/dL (0.8-1.3) 05/22/20 05:41 Estimated GFR > 60 ml/min 05/22/20 05:41 BUN/Creatinine Ratio 15 % 05/22/20 05:41 Glucose 110 mg/dL (75-100) H 05/22/20 05:41 Hemoglobin A1c 5.5 % (4-6) 05/21/20 03:00 Lactic Acid 1.00 mmol/L (0.7-2.0) 05/21/20 03:00 Calcium 7.2 mg/dL (8.4-10.2) L 05/22/20 05:41 Magnesium 2.00 mg/dL (1.7-2.3) 05/20/20 16:42 Ferritin 147.0 ng/mL (30.0-300.0) 05/21/20 03:00 Total Bilirubin < 0.20 mg/dL (0.1-1.2) 05/20/20 16:42 AST 10 units/L (5-40) 05/20/20 16:42 ALT 6 units/L (7-56) L 05/20/20 16:42 Alkaline Phosphatase 79 units/L (35-129) 05/20/20 16:42 Lactate Dehydrogenase 179 units/L (91-180) 05/21/20 03:00 Troponin T < 0.010 ng/mL (0.00-0.029) 05/21/20 00:23 NT-Pro-B Natriuret Pep 119.3 pg/mL (0-450) 05/20/20 19:59 Total Protein 4.6 g/dL (6.3-8.2) L 05/20/20 16:42 Albumin 1.6 g/dL (3.9-5) L 05/20/20 16:42 Albumin/Globulin Ratio 0.5 % 05/20/20 16:42 Urine Color Yellow (Yellow) 05/21/20 09:30 Urine Turbidity Hazy (Clear) 05/21/20 09:30 Urine pH 6.0 (5.0-7.0) 05/21/20 09:30 Ur Specific [place] 1.010 (1.003-1.030) 05/21/20 09:30 Urine Protein 100 mg/dl mg/dL (Negative) 05/21/20 09:30 Urine Glucose (UA) Neg mg/dL (Negative) 05/21/20 09:30 Urine Ketones Neg mg/dL (Negative) 05/21/20 09:30 Urine Blood Mod (Negative) 05/21/20 09:30 Urine Nitrite Neg (Negative) 05/21/20 09:30 Urine Bilirubin Neg (Negative) 05/21/20 09:30 Urine Urobilinogen < 2.0 mg/dL (<2.0) 05/21/20 09:30 Ur Leukocyte Esterase Neg (Negative) 05/21/20 09:30 Urine WBC (Auto) 4.0 /HPF (0.0-6.0) 05/21/20 09:30 Urine RBC (Auto) 10.0 /HPF (0.0-6.0) 05/21/20 09:30 U Epithel Cells (Auto) < 1.0 /HPF (0-13.0) 05/21/20 09:30 Urine Opiates Screen Negative 05/21/20 09:30 Urine Methadone Screen Negative 05/21/20 09:30 Ur Barbiturates Screen Negative 05/21/20 09:30 Ur Phencyclidine Scrn Negative 05/21/20 09:30 Ur Amphetamines Screen Negative 05/21/20 09:30 U Benzodiazepines Scrn Negative 05/21/20 09:30 Urine Cocaine Screen Negative 05/21/20 09:30 U Marijuana (THC) Screen Negative 05/21/20 09:30 Drugs of Abuse Note Disclamer 05/21/20 09:30 Coronavirus (PCR) Negative (Negative) 05/21/20 09:58 Microbiology: Microbiology 05/21/20 04:45 Peripheral/Venous Blood Culture - Preliminary NO GROWTH AFTER 24 HOURS 05/21/20 03:00 Peripheral/Venous Blood Culture - Preliminary NO GROWTH AFTER 24 HOURS Moe/IV: Voiding Method Urinal Active Medications - Current Medications Current Medications: Generic Name Dose Route Start Last Admin Trade Name Freq PRN Reason Stop Dose Admin Albuterol 2.5 mg 05/21/20 02:37 Albuterol 2.5 Mg/3 Ml Nebu IH Q4HRT PRN Shortness Of Breath Bupropion HCl 100 mg 05/21/20 10:00 05/22/20 09:18 Bupropion 100 Mg Tab PO 100 mg DAILY LAURY Administration Carvedilol 3.125 mg 05/21/20 10:00 05/22/20 09:17 Carvedilol 3.125 Mg Tab PO 3.125 mg BID LAURY Administration Furosemide 40 mg 05/21/20 06:00 05/22/20 05:36 Furosemide 40 Mg/4 Ml Inj IV 40 mg BID@0600,1800 LAURY Administration Heparin Sodium (Porcine) 5,500 unit 05/21/20 12:08 Heparin 10,000 Units/10 Ml Vial 40 unit/kg (5500 unit) IV Q6H PRN Anti-Xa Assay < 0.1 units/ml Heparin Sodium/Sodium Chloride 25,000 unit in 500 mls @ 30 mls/hr 05/21/20 13:00 05/22/20 06:45 Heparin/ 0.45% Nacl-25,000 Unit/500 Ml IV Infused TITR [facility] Titration Protocol 1,500 UNITS/HR Lisinopril 10 mg 05/21/20 10:00 05/22/20 09:18 Lisinopril 10 Mg Tab PO 10 mg QDAY LAURY Administration Nicotine 14 mg 05/21/20 02:58 Nicotine 14 Mg/24 Hr Patch TD QDAY PRN smoking cessation
--- NOTE | 2020-05-22 11:30 | Progress Note ---
Assessment and Plan tte reviewed - EF 55-60%, impaired relaxation, mild TR. Pt with significant anasarca. No apparent acute heart failure. Cont IV diuretics per primary team. tele reviewed - in SR HR 100s, several sinus pauses (longest pause 4 sec) and transient second degree type II AV block noted this AM while pt was asleep. Pt has been receiving coreg 3.125mg BID since admission. Pt also has suspected h/o JONA. D/c AV alisson blocking agents and encourage strict compliance with CPAP @ HS. Obtain thyroid profile. Cont to monitor closely on telemetry. Overnight events reviewed - pt had episode of agitation for which security was called. Recommend psych consultation per primary team. Elevated DDimer noted - pt initiated on heparin gtt. Chest CTA is pending completion. Will follow. The patient has been seen in conjunction with Dr. Navarrete who agrees with the assessment and plan of care. - Patient Problems (1) Anasarca Current Visit: Yes Status: Acute (2) Schizophrenia Current Visit: Yes Status: Chronic (3) Bipolar disorder Current Visit: Yes Status: Chronic (4) Morbid obesity Current Visit: Yes Status: Chronic (5) JONA (obstructive sleep apnea) Current Visit: Yes Status: Suspected (6) AV block Current Visit: Yes Status: Acute Subjective Date of service: 05/22/20 Principal diagnosis: anasarca Interval history: pt resting up at bedside, physical therapy staff is present. pt states he is feeling about the same. overnight events reviewed - pt had episode of agitation for which security was called. tele reviewed - in SR HR 100s, several sinus pauses (longest pause 4 sec) and transient second degree type II AV block noted this AM while pt was asleep. Pt has h/o sleep apnea. Objective Last Vital Signs Temp 98.5 F 05/22/20 08:09 Pulse 107 H 05/22/20 09:18 Resp 24 05/22/20 10:45 BP 137/68 05/22/20 09:18 Pulse Ox 96 05/22/20 08:09 - Physical Examination General: No Apparent Distress HEENT: Positive: PERRL, Normocephaly, Mucus Membranes Moist Neck: Positive: neck supple, trachea midline Cardiac: Positive: Regular Rhythm, S1/S2 Lungs: Positive: Decreased Breath Sounds Neuro: Positive: Grossly Intact Abdomen: Positive: Distended Skin: Negative: Rash, Wound Musculoskeletal: No Pain Extremities: Present: upper extr. pulses, lower extr. pulses, +4 Edema - Labs and Meds Coagulation 05/21/20 Range/Units 13:52 PT 13.0 (12.2-14.9) Sec. INR 0.99 (0.87-1.13) APTT 27.8 (24.2-36.6) Sec. CBC 05/21/20 Range/Units 13:52 Hgb 10.5 L (11.8-15.2) gm/dl Hct 32.6 L (35.5-45.6) % Plt Count 290 (140-440) K/mm3 Comprehensive Metabolic Panel 05/22/20 Range/Units 05:41 Sodium 139 (137-145) mmol/L Potassium 4.5 (3.6-5.0) mmol/L Chloride 104.8 (98-107) mmol/L Carbon Dioxide 27 (22-30) mmol/L BUN 12 (9-20) mg/dL Creatinine 0.8 (0.8-1.3) mg/dL Glucose 110 H (75-100) mg/dL Calcium 7.2 L (8.4-10.2) mg/dL - Imaging and Cardiology Echo: pending - Telemetry EKG Rhythm: Sinus Rhythm
[2020-05-22] MEDS: HEPARIN/ 0.45% NACL DRIP 25,000 UNIT/500 ML BAG IV SCH (13:22)
[2020-05-22] MEDS ORDERED: HEPARIN 10,000 UNITS/10 ML VIAL IV ONE (16:54)
[2020-05-22] MEDS: HEPARIN 10,000 UNITS/10 ML VIAL IV PRN (19:09)
[2020-05-23] MEDS: HEPARIN/ 0.45% NACL DRIP 25,000 UNIT/500 ML BAG IV SCH ×2 (01:23→13:58)
[2020-05-23] MEDS: FUROSEMIDE 40 MG/4 ML INJ IV SCH ×2 (06:03→18:08)
[2020-05-23 07:32] LABS: Basophils # (Auto) 0.1 K/mm3 (0.0-0.1); Basophils % (Auto) 0.6 % (0.0-1.8); Eosinophils # (Auto) 0.4 K/mm3 (0.0-0.4); Hematocrit 32.4 % (35.5-45.6); Hemoglobin 10.4 gm/dl (11.8-15.2); Lymphocytes # (Auto) 3.7 K/mm3 (1.2-5.4); Lymphocytes % (Auto) 28.6 % (13.4-35.0); Mean Corpuscular HGB Conc 32 % (32-34); Mean Corpuscular Volume 84 fl (84-94); Monocytes # (Auto) 1.6 K/mm3 (0.0-0.8); Monocytes % (Auto) 12.5 % (0.0-7.3); Platelet Count 359 K/mm3 (140-440); Red Blood Count 3.87 M/mm3 (3.65-5.03); Red Cell Distribution Width 15.3 % (13.2-15.2)
[2020-05-23 07:59] LABS: Blood Urea Nitrogen 13 mg/dL (9-20); Calcium 7.6 mg/dL (8.4-10.2); Hemolysis Index 10
[2020-05-23 08:01] LABS: BUN/Creatinine Ratio 19
[2020-05-23] MEDS: buPROPion 100 MG TAB PO SCH (09:21)
[2020-05-23] MEDS: LISINOPRIL 10 MG TAB PO SCH (09:21)
--- NOTE | 2020-05-23 10:03 | Consultation ---
History of Present Illness - Reason for Consult Consult date: 05/23/20 other - History of Present Illness Them patient is a 29 YO AAM with history significant for Morbid Obesity, Schizophrenia and bipolar disorder who presented [facility] via EMS with complaints of difficulty in breathing and generalized edema. Patient is a very poor historian and not answering the questions. He complains of progressively worsening shortness of breath of 3 to 4 days duration. He also reported that he is not able to ambulate or perform routine ADLs due to significant shortness of breath. Additionally he complains of generalized edema, which started in his lower extremities and has progressed up to his groin and abdomen. Endorses orthopnea, PND, and impaired mobility due to current state. Patient mentioned he started taking Hydroxycut (OTC weight loss supplement) approximately 2 weeks ago and thinks that this may have contributed to his shortness of breath and generalized edema. Labs significant for Albumin 1.6. Nephrology was consulted for evaluation of possible Nephrotic syndrome. Past History Past Medical History: other (Bipolar, schizophrenia, obesity) Past Surgical History: No surgical history Social history: single, Lives alone, smoking, full code. denies: alcohol abuse, prescription drug abuse, IV drug use Family history: no significant family history Medications and Allergies Allergies Allergy/AdvReac Type Severity Reaction Status Date / Time No Known Allergies Allergy Verified 12/20/19 03:26 Home Medications Medication Instructions Recorded Confirmed Last Taken Type Paliperidone Palmitate [Invega 156 mg IM QMONTH 12/20/19 05/21/20 05/10/20 History Sustenna] Divalproex ER [DepaKOTE ER] 1,500 mg PO QHS 05/21/20 05/21/20 05/19/20 History Active Meds: Active Medications Albuterol (Albuterol 2.5 Mg/3 Ml Nebu) 2.5 mg IH Q4HRT PRN PRN Reason: Shortness Of Breath Bupropion HCl (Bupropion 100 Mg Tab) 100 mg PO DAILY [facility] Last Admin: 05/23/20 09:21 Dose: 100 mg Documented by: Furosemide (Furosemide 40 Mg/4 Ml Inj) 40 mg IV BID@0600,1800 [facility] Last Admin: 05/23/20 06:03 Dose: 40 mg Documented by: Heparin Sodium (Porcine) (Heparin 10,000 Units/10 Ml Vial) 5,500 unit 40 unit/kg (5500 unit) IV Q6H PRN PRN Reason: Anti-Xa Assay < 0.1 units/ml Last Admin: 05/22/20 19:09 Dose: 5,500 unit Documented by: Heparin Sodium/Sodium Chloride (Heparin/ 0.45% Nacl-25,000 Unit/500 Ml) 25,000 unit in 500 mls @ 30 mls/hr IV TITR LAURY; Protocol Last Admin: 05/23/20 01:23 Dose: 2,150 units/hr, 43 mls/hr Documented by: Lisinopril (Lisinopril 10 Mg Tab) 10 mg PO QDAY LAURY Last Admin: 05/23/20 09:21 Dose: 10 mg Documented by: Nicotine (Nicotine 14 Mg/24 Hr Patch) 14 mg TD QDAY PRN PRN Reason: smoking cessation Review of Systems ROS unobtainable: due to mental status Exam - Vital Signs Vital signs: Vital Signs Temp Pulse Resp BP Pulse Ox 98.5 F 126 H 26 H 161/78 95 05/20/20 16:37 05/20/20 16:37 05/20/20 16:37 05/20/20 16:37 05/20/20 16:37 Results - Lab Results 05/24/20 05:30 05/24/20 05:30 Most recent lab results Calcium 7.6 mg/dL (8.4-10.2) L 05/23/20 06:43 Magnesium 2.00 mg/dL (1.7-2.3) 05/20/20 16:42 Assessment and Plan 1. Edema and hypoalbuminemia: Suspected nephrotic syndrome. Could be related to morbid obesity. Renal function is normal. Urine protein quantification ordered. Avoid nephrotoxic agents. 2. FEN: Volume overload, IV Lasix. Monitor lytes and volume status. 3. Acute hypoxic respiratory failure:- Monitor. Unable to get CT chest secondary to weight as well as patient's refusal to lie flat. 4. HFpEF: Lasix and Metolazone. 5. Elevated D-dimer: Unable to get CT chest. Monitor. 6. Sinus pause/transient second-degree AV block: Resolved after discontinuation of AV alisson blocking agent. Followed by Cardiology. 7. Leukocytosis: Monitor. 8. Schizophrenia/bipolar disorder. 9. Tobacco abuse. Subjective: Patient was seen and examined at the bedside. Objective: General appearance: well-developed, appears stated age, not in distress, obese HEENT: ATNC Neck: trachea midline Respiratory: ctab Heart: regular, S1S2, no murmur Abdomen: soft, obese, normoactive bowel sounds, not tender Integumentary: no rash, warm and dry Ext: 2+ LE edema, scrotal edema noted Neurologic: alert, not answering the question
--- NOTE | 2020-05-23 10:48 | Progress Note ---
Assessment and Plan Assessment and plan: 29-year-old obese -[place] male with history of schizophrenia and bipolar disorder who presents to [facility] ED via EMS with complaints of difficulty in breathing and generalized edema. Patient was taking Hydroxycut (OTC weight loss supplement) approximately 2 weeks ago, believes this has something to do with this anasarca. Patient admitted for heart failure work-up. Acute hypoxic respiratory failure Diastolic heart failure Elevated D-dimer Sinus pause/transient second-degree AV block. Anasarca Leukocytosis Schizophrenia/bipolar disorder Tobacco abuse Hospital course: 05/21 patient seen, continues to have significant anasarca. Patient is refusing Moe catheter. 05/22. Left ventricular systolic function normal with EF of 55 to 60%. Mild diastolic dysfunction. RVSP 27 mmHg. Await cardiology evaluation. Continue Lasix, Coreg. Await CTA of the chest given elevated D-dimer. Continue empiric IV heparin for now. Patient with probable JONA/OHS. Covid testing negative. 05/23. Patient unable to do CTA of the chest or VQ scan because inability to lie flat on the table. Nephrology consulted for anasarca and severe hypoalbuminemia. Continue empiric IV heparin. Patient reportedly with several sinus pauses (longest pause 4 sec) and transient second degree type II AV block noted yesterday. AV alisson blocking agents discontinued History Interval history: 29-year-old obese -[place] male with history of schizophrenia and bipolar disorder who presents to [facility] ED via EMS with complaints of difficulty in breathing and generalized edema. Patient was taking Hydroxycut (OTC weight loss supplement) approximately 2 weeks ago, believes this has something to do with this anasarca. Patient admitted for heart failure work-up. No new issues overnight Hospitalist Physical - Constitutional Vitals: Temp Pulse Resp BP Pulse Ox 98.3 F 98 H 20 141/90 100 05/23/20 08:54 05/23/20 08:54 05/23/20 08:54 05/23/20 08:54 05/23/20 08:54 General appearance: Present: no acute distress - EENT Eyes: Present: PERRL, EOM intact ENT: hearing intact, clear oral mucosa, dentition normal - Neck Neck: Present: supple, normal ROM - Respiratory Respiratory effort: normal Respiratory: bilateral: CTA - Cardiovascular Rhythm: regular Heart Sounds: Present: S1 & S2. Absent: gallop, rub - Extremities Extremity abnormal: edema - Abdominal General gastrointestinal: soft, non-tender, non-distended, normal bowel sounds - Integumentary Integumentary: Present: clear, warm, dry - Neurologic Neurologic: CNII-XII intact, moves all extremities HEART Score - HEART Score Troponin: Troponin T < 0.010 ng/mL (0.00-0.029) 05/21/20 00:23 Results - Labs CBC & Chem 7: 05/23/20 06:43 05/23/20 06:43 Labs: Laboratory Last Values WBC 12.8 K/mm3 (4.5-11.0) H 05/23/20 06:43 RBC 3.87 M/mm3 (3.65-5.03) 05/23/20 06:43 Hgb 10.4 gm/dl (11.8-15.2) L 05/23/20 06:43 Hct 32.4 % (35.5-45.6) L 05/23/20 06:43 MCV 84 fl (84-94) 05/23/20 06:43 MCH 27 pg (28-32) L 05/23/20 06:43 MCHC 32 % (32-34) 05/23/20 06:43 RDW 15.3 % (13.2-15.2) H 05/23/20 06:43 Plt Count 359 K/mm3 (140-440) 05/23/20 06:43 Lymph % (Auto) 28.6 % (13.4-35.0) 05/23/20 06:43 [place] % (Auto) 12.5 % (0.0-7.3) H 05/23/20 06:43 Eos % (Auto) 3.0 % (0.0-4.3) 05/23/20 06:43 Baso % (Auto) 0.6 % (0.0-1.8) 05/23/20 06:43 Lymph # (Auto) 3.7 K/mm3 (1.2-5.4) 05/23/20 06:43 [place] # (Auto) 1.6 K/mm3 (0.0-0.8) H 05/23/20 06:43 Eos # (Auto) 0.4 K/mm3 (0.0-0.4) 05/23/20 06:43 Baso # (Auto) 0.1 K/mm3 (0.0-0.1) 05/23/20 06:43 Seg Neutrophils % 55.3 % (40.0-70.0) 05/23/20 06:43 Seg Neutrophils # 7.1 K/mm3 (1.8-7.7) 05/23/20 06:43 PT 13.0 Sec. (12.2-14.9) 05/21/20 13:52 INR 0.99 (0.87-1.13) 05/21/20 13:52 APTT 27.8 Sec. (24.2-36.6) 05/21/20 13:52 D-Dimer 3507.99 ng/mlDDU (0-234) H 05/21/20 04:45 Heparin Anti-Xa Level 0.40 U.I./ml (0.3-0.7) 05/23/20 06:43 Sodium 139 mmol/L (137-145) 05/23/20 06:43 Potassium 3.9 mmol/L (3.6-5.0) 05/23/20 06:43 Chloride 103.6 mmol/L (98-107) 05/23/20 06:43 Carbon Dioxide 26 mmol/L (22-30) 05/23/20 06:43 Anion Gap 13 mmol/L 05/23/20 06:43 BUN 13 mg/dL (9-20) 05/23/20 06:43 Creatinine 0.7 mg/dL (0.8-1.3) L 05/23/20 06:43 Estimated GFR > 60 ml/min 05/23/20 06:43 BUN/Creatinine Ratio 19 % 05/23/20 06:43 Glucose 90 mg/dL (75-100) 05/23/20 06:43 Hemoglobin A1c 5.5 % (4-6) 05/21/20 03:00 Lactic Acid 1.00 mmol/L (0.7-2.0) 05/21/20 03:00 Calcium 7.6 mg/dL (8.4-10.2) L 05/23/20 06:43 Magnesium 2.00 mg/dL (1.7-2.3) 05/20/20 16:42 Ferritin 147.0 ng/mL (30.0-300.0) 05/21/20 03:00 Total Bilirubin < 0.20 mg/dL (0.1-1.2) 05/20/20 16:42 AST 10 units/L (5-40) 05/20/20 16:42 ALT 6 units/L (7-56) L 05/20/20 16:42 Alkaline Phosphatase 79 units/L (35-129) 05/20/20 16:42 Lactate Dehydrogenase 179 units/L (91-180) 05/21/20 03:00 Troponin T < 0.010 ng/mL (0.00-0.029) 05/21/20 00:23 NT-Pro-B Natriuret Pep 119.3 pg/mL (0-450) 05/20/20 19:59 Total Protein 4.6 g/dL (6.3-8.2) L 05/20/20 16:42 Albumin 1.6 g/dL (3.9-5) L 05/20/20 16:42 Albumin/Globulin Ratio 0.5 % 05/20/20 16:42 TSH 4.210 mlU/mL (0.270-4.200) H 05/22/20 13:44 Free T4 0.75 ng/dL (0.76-1.46) L 05/22/20 13:44 Urine Color Yellow (Yellow) 05/21/20 09:30 Urine Turbidity Hazy (Clear) 05/21/20 09:30 Urine pH 6.0 (5.0-7.0) 05/21/20 09:[address] 1.010 (1.003-1.030) 05/21/20 09:30 Urine Protein 100 mg/dl mg/dL (Negative) 05/21/20 09:30 Urine Glucose (UA) Neg mg/dL (Negative) 05/21/20 09:30 Urine Ketones Neg mg/dL (Negative) 05/21/20 09:30 Urine Blood Mod (Negative) 05/21/20 09:30 Urine Nitrite Neg (Negative) 05/21/20 09:30 Urine Bilirubin Neg (Negative) 05/21/20 09:30 Urine Urobilinogen < 2.0 mg/dL (<2.0) 05/21/20 09:30 Ur Leukocyte Esterase Neg (Negative) 05/21/20 09:30 Urine WBC (Auto) 4.0 /HPF (0.0-6.0) 05/21/20 09:30 Urine RBC (Auto) 10.0 /HPF (0.0-6.0) 05/21/20 09:30 U Epithel Cells (Auto) < 1.0 /HPF (0-13.0) 05/21/20 09:30 Urine Opiates Screen Negative 05/21/20 09:30 Urine Methadone Screen Negative 05/21/20 09:30 Ur Barbiturates Screen Negative 05/21/20 09:30 Ur Phencyclidine Scrn Negative 05/21/20 09:30 Ur Amphetamines Screen Negative 05/21/20 09:30 U Benzodiazepines Scrn Negative 05/21/20 09:30 Urine Cocaine Screen Negative 05/21/20 09:30 U Marijuana (THC) Screen Negative 05/21/20 09:30 Drugs of Abuse Note Disclamer 05/21/20 09:30 Coronavirus (PCR) Negative (Negative) 05/21/20 09:58 Microbiology: Microbiology 05/21/20 04:45 Peripheral/Venous Blood Culture - Preliminary NO GROWTH AFTER 48 HOURS 05/21/20 03:00 Peripheral/Venous Blood Culture - Preliminary NO GROWTH AFTER 48 HOURS Meo/IV: Voiding Method Urinal Active Medications - Current Medications Current Medications: Generic Name Dose Route Start Last Admin Trade Name Freq PRN Reason Stop Dose Admin Albuterol 2.5 mg 05/21/20 02:37 Albuterol 2.5 Mg/3 Ml Nebu IH Q4HRT PRN Shortness Of Breath Bupropion HCl 100 mg 05/21/20 10:00 05/23/20 09:21 Bupropion 100 Mg Tab PO 100 mg DAILY LAURY Administration Furosemide 40 mg 05/21/20 06:00 05/23/20 06:03 Furosemide 40 Mg/4 Ml Inj IV 40 mg BID@0600,1800 LAURY Administration Heparin Sodium (Porcine) 5,500 unit 05/21/20 12:08 05/22/20 19:09 Heparin 10,000 Units/10 Ml Vial 40 unit/kg (5500 unit) 5,500 unit IV Administration Q6H PRN Anti-Xa Assay < 0.1 units/ml Heparin Sodium/Sodium Chloride 25,000 unit in 500 mls @ 30 mls/hr 05/21/20 13:00 05/23/20 01:23 Heparin/ 0.45% Nacl-25,000 Unit/500 Ml IV 2,150 units/hr TITR LAURY 43 mls/hr Administration Protocol 1,500 UNITS/HR Lisinopril 10 mg 05/21/20 10:00 05/23/20 09:21 Lisinopril 10 Mg Tab PO 10 mg QDAY LAURY Administration Nicotine 14 mg 05/21/20 02:58 Nicotine 14 Mg/24 Hr Patch TD QDAY PRN smoking cessation
--- NOTE | 2020-05-23 12:47 | Progress Note ---
Assessment and Plan This pt is a 29 year old male with a significant hx of morbid obesity, bipolar disorder and schizophrenia. He is previously unknown to our practice. Pt presents to [facility] with c/o SOB x 4 days and diffuse lower extremity and abd swelling. Pt states he recently began taking diet supplement Hydroxycut for the last 2 weeks. He endorsed orthopnea with SOB lying supine, but also when sitting up straight due to abd distention. He denies any prior medical issues. No Chest pain, syncope, dizziness, N/V/D or recent illness. On exam pt is noted to have diffuse anasarca to BLE and ABD. PT is admitted as a Covid PUI. tte reviewed - EF 55-60%, impaired relaxation, mild TR. Pt with significant anasarca. No apparent acute heart failure. Cont IV diuretics per primary team. tele reviewed - in SR HR 100s, several sinus pauses (longest pause 4 sec) and transient second degree type II AV block noted this AM while pt was asleep. Pt has been receiving coreg 3.125mg BID since admission. Pt also has suspected h/o JONA. D/c AV alisson blocking agents and encourage strict compliance with CPAP @ HS. Obtain thyroid profile. Cont to monitor closely on telemetry. Overnight events reviewed - pt had episode of agitation for which security was called. Recommend psych consultation per primary team. Elevated DDimer noted - pt initiated on heparin gtt. Chest CTA is pending completion. Radiology states pt is unable to undrgo scanning due to body haibitus. Further planning per primary team. Nothing further to add from cardiology standpoint. Will follow on as needed basis. Pt should f/u with Dr Navarrete in our office within 1-2 weeks od discharge. The patient has been seen in conjunction with Dr. Navarrete who agrees with the assessment and plan of care. - Patient Problems (1) Allergic reaction Current Visit: Yes Status: Acute (2) Pulmonary edema Current Visit: Yes Status: Acute Qualifiers: Chronicity: acute Qualified Code(s): J81.0 - Acute pulmonary edema (3) Anasarca Current Visit: Yes Status: Acute (4) Morbid obesity Current Visit: Yes Status: Chronic (5) Schizophrenia Current Visit: Yes Status: Chronic (6) Bipolar 1 disorder Current Visit: Yes Status: Chronic Subjective Date of service: 05/23/20 Principal diagnosis: anasarca Interval history: Pt resting comfortably in bed. No CP, SOB overnight. Tele reviewed: SR 88. No events. Objective Last Vital Signs Temp 98.3 F 05/23/20 08:54 Pulse 98 H 05/23/20 08:54 Resp 20 05/23/20 08:54 BP 141/90 05/23/20 08:54 Pulse Ox 100 05/23/20 08:54 - Physical Examination General: No Apparent Distress HEENT: Positive: PERRL, Normocephaly, Mucus Membranes Moist Neck: Positive: neck supple, trachea midline Cardiac: Positive: Reg Rate and Rhythm, S1/S2 Lungs: Positive: clear to auscultation, Normal Breath Sounds Neuro: Positive: Grossly Intact Abdomen: Positive: Distended Skin: Negative: Rash, Wound Musculoskeletal: No Pain Extremities: Present: upper extr. pulses, lower extr. pulses, +4 Edema - Labs and Meds CBC 05/23/20 Range/Units 06:43 WBC 12.8 H (4.5-11.0) K/mm3 RBC 3.87 (3.65-5.03) M/mm3 Hgb 10.4 L (11.8-15.2) gm/dl Hct 32.4 L (35.5-45.6) % Plt Count 359 (140-440) K/mm3 Lymph # (Auto) 3.7 (1.2-5.4) K/mm3 Branch # (Auto) 1.6 H (0.0-0.8) K/mm3 Eos # (Auto) 0.4 (0.0-0.4) K/mm3 Baso # (Auto) 0.1 (0.0-0.1) K/mm3 Comprehensive Metabolic Panel 05/23/20 Range/Units 06:43 Sodium 139 (137-145) mmol/L Potassium 3.9 (3.6-5.0) mmol/L Chloride 103.6 (98-107) mmol/L Carbon Dioxide 26 (22-30) mmol/L BUN 13 (9-20) mg/dL Creatinine 0.7 L (0.8-1.3) mg/dL Glucose 90 (75-100) mg/dL Calcium 7.6 L (8.4-10.2) mg/dL - Imaging and Cardiology Echo: report reviewed, image reviewed (Echo reviewed (05/21/20): EF 55-60%. LV mild diastolic dysfunction. )
[2020-05-23 22:56] LABS: Creatinine,Urine 130.6 mg/dL (0.1-20.0)
[2020-05-23 23:07] LABS: Protein/Creatinine Ratio,Urine 4.04
[2020-05-24] MEDS: HEPARIN/ 0.45% NACL DRIP 25,000 UNIT/500 ML BAG IV SCH ×2 (01:58→18:04)
[2020-05-24] MEDS: FUROSEMIDE 40 MG/4 ML INJ IV SCH (05:46)
[2020-05-24 06:02] LABS: Hematocrit 31.1 % (35.5-45.6); Hemoglobin 9.7 gm/dl (11.8-15.2); Mean Corpuscular HGB Conc 31 % (32-34); Mean Corpuscular Volume 85 fl (84-94); Red Blood Count 3.67 M/mm3 (3.65-5.03); Red Cell Distribution Width 15.5 % (13.2-15.2)
[2020-05-24 06:04] LABS: Platelet Count 345 K/mm3 (140-440)
[2020-05-24 06:05] LABS: Basophils # (Auto) 0.1 K/mm3 (0.0-0.1); Eosinophils % (Auto) 6.4 % (0.0-4.3); Lymphocytes # (Auto) 4.8 K/mm3 (1.2-5.4); Lymphocytes % (Auto) 31.3 % (13.4-35.0); Monocytes # (Auto) 1.6 K/mm3 (0.0-0.8); Monocytes % (Auto) 10.8 % (0.0-7.3)
[2020-05-24 06:22] LABS: BUN/Creatinine Ratio 16; Blood Urea Nitrogen 13 mg/dL (9-20); Calcium 7.4 mg/dL (8.4-10.2); Hemolysis Index 80
--- NOTE | 2020-05-24 08:40 | Progress Note ---
Assessment and Plan 29-year-old obese -Mexican male with history of schizophrenia and bipolar disorder who presents to [facility] via EMS with complaints of difficulty in breathing and generalized edema. Patient was taking Hydroxycut (OTC weight loss supplement) approximately 2 weeks ago, believes this has something to do with this anasarca. Patient admitted for heart failure work-up. #1 acute hypoxic respiratory failure-at present patient hemodynamically stable. Currently hypoxemia has improved. Unable to obtain CT scan secondary to weight as well as patient's refusal to lie flat. Some of this is part of patient's schizophrenia. He states if he lays flat his scrotum comes outside of his body. Will attempt to give Ativan and have patient physical attributes allow him to have a CT scan will rule out PE and discontinue heparin. #2 diastolic heart failure-continue treating symptom management with Lasix. We will also add Zaroxolyn 5 mg twice daily today. #3 elevated [id number] not get VQ scan secondary to body habitus and obesity. Will attempt to obtain CT scan to rule out PE. Discontinue heparin. Will give patient more trial of Ativan to see if he can calm down enough to obtain CT scan to evaluate for PE. #4 sinus pause/transient second-degree AV block. Resolved after discontinuation of AV alisson blocking agent. Appreciate cardiology note. #5 anasarca exact etiology unknown however patient does have severe hypoalbu minemia as well as low protein. At top of differential now would be renal loss and decreased oncotic pressure. Consult neurology. Aggressive follow-up of electrolytes secondary to diuresis #6 leukocytosis stable now but this does not appear to be new. Further subjective findings patient was recently worked up for leukocytosis at nearby hospital. Etiology was unfounded at that time. Schizophrenia/bipolar disorder-continue present medical management. Tobacco abuse-educated on the dangers of tobacco use and abuse. Hospital course: 05/21 patient seen, continues to have significant anasarca. Patient is refusing Moe catheter. 05/22. Left ventricular systolic function normal with EF of 55 to 60%. Mild diastolic dysfunction. RVSP 27 mmHg. Await cardiology evaluation. Continue Lasix, Coreg. Await CTA of the chest given elevated D-dimer. Continue empiric IV heparin for now. Patient with probable JONA/OHS. Covid testing negative. 4/14. Patient unable to do CTA of the chest or VQ scan because inability to lie flat on the table. Nephrology consulted for anasarca and severe hypoalbuminemia. Continue empiric IV heparin. Patient reportedly with several sinus pauses (longest pause 4 sec) and transient second degree type II AV block noted yesterday. AV alisson blocking agents discontinued 05/24 patient now in agreement to continue to try CT scan. Along with Ativan and uplifting of his scrotum. No further pauses at this time after AV alisson blocking agent discontinued. At present remains hemodynamically stable. - Patient Problems (1) AV block Current Visit: Yes Status: Acute (2) Acute respiratory distress Current Visit: Yes Status: Acute (3) Anasarca Current Visit: Yes Status: Acute (4) Pulmonary edema Current Visit: Yes Status: Acute Qualifiers: Chronicity: acute Qualified Code(s): J81.0 - Acute pulmonary edema (5) Bipolar 1 disorder Current Visit: Yes Status: Chronic (6) Morbid obesity Current Visit: Yes Status: Chronic (7) Schizophrenia Current Visit: Yes Status: Chronic (8) JONA (obstructive sleep apnea) Current Visit: Yes Status: Suspected Subjective Date of service: 05/24/20 Principal diagnosis: anasarca Interval history: Them patient is a 29 YO AAM with history significant for Morbid Obesity, Schizophrenia and bipolar disorder who presents to [facility] via EMS with complaints of difficulty in breathing and generalized edema. Patient complains of progressively worsening shortness of breath over the past 3 to 4 days. He states that he is on able to ambulate, or perform routine ADLs due to significant shortness of breath. Additionally he complains of generalized edema, which started in his lower extremities and has progressed up to his groin and abdomen. Endorses orthopnea, PND, and impaired mobility due to current state. Patient mentioned he started taking Hydroxycut (OTC weight loss supplement) approximately 2 weeks ago and thinks that this may have contributed to his shortness of breath and generalized edema. At present patient complains of being uncomfortable with the fluid around his legs and scrotum. I did discuss patient why he did not perform the CT scan. Patient stated he cannot lay flat because of pressure on his scrotum. Patient denies any shortness of breath or chest pain at this particular time. Hospital course at this time is complicated by features of bipolar disorder in which patient has some grandiose ideas as well as associations with previous diseases and his current edema. All questions answered to patient's satisfaction. Patient agrees to attempt CT scan again with something to calm him down Ativan. Objective - Constitutional Vitals: Vital Signs - 12hr 05/23/20 05/23/20 05/23/20 21:33 21:35 22:00 Temperature Pulse Rate 72 Respiratory 15 20 Rate Blood Pressure O2 Sat by Pulse 100 99 96 Oximetry 05/23/20 05/23/20 05/24/20 22:47 23:31 04:05 Temperature 98.7 F 97.9 F Pulse Rate 106 H 102 H 94 H Respiratory 24 20 Rate Blood Pressure 135/81 148/88 O2 Sat by Pulse 99 100 Oximetry General appearance: Present: no acute distress, obese - EENT Eyes: PERRL, EOM intact ENT: hearing intact, clear oral mucosa - Respiratory Respiratory: bilateral: diminished, negative: other (Patient has adequate air entry. No wheezing. Poor inspiratory effort) - Cardiovascular Rhythm: regular Heart Sounds: Present: S1 & S2. Absent: gallop, rub Extremity abnormal: other (Extensive ascites extending from lower extremities to waist. Also scrotal edema.) - Gastrointestinal General gastrointestinal: Present: soft, non-tender, non-distended, normal bowel sounds - Musculoskeletal Musculoskeletal: 1, strength equal bilaterally - Psychiatric Psychiatric: memory intact, appropriate mood/affect, intact judgment & insight - Labs CBC & Chem 7: 05/24/20 05:30 05/24/20 05:30 Labs: Abnormal lab results 05/23/20 05/24/20 05/24/20 Range/Units 22:37 05:30 05:30 WBC 15.3 H (4.5-11.0) K/mm3 Hgb 9.7 L (11.8-15.2) gm/dl Hct 31.1 L (35.5-45.6) % MCH 27 L (28-32) pg MCHC 31 L (32-34) % RDW 15.5 H (13.2-15.2) % [place] % (Auto) 10.8 H (0.0-7.3) % Eos % (Auto) 6.4 H (0.0-4.3) % [place] # (Auto) 1.6 H (0.0-0.8) K/mm3 Eos # (Auto) 1.0 H (0.0-0.4) K/mm3 Sodium 135 L (137-145) mmol/L Calcium 7.4 L (8.4-10.2) mg/dL Urine Creatinine 130.6 H (0.1-20.0) mg/dL Urine Total Protein 528 H (5-11.8) mg/dL HEART Score - HEART Score Troponin: Troponin T < 0.010 ng/mL (0.00-0.029) 05/21/20 00:23
[2020-05-24] MEDS: LISINOPRIL 10 MG TAB PO SCH (10:44)
[2020-05-24] MEDS: buPROPion 100 MG TAB PO SCH (10:44)
[2020-05-24] MEDS: metOLazone 5 MG TAB PO SCH (10:45)
[2020-05-24] MEDS ORDERED: LORazepam 2 MG/ML VIAL IV PRN (11:00)
--- NOTE | 2020-05-24 11:32 | Electrocardiograph Report ---
[facility] Test Date: 2020-05-20 Test Time: 17:19:20 Pat Name: MATTHEW PRASAD Department: Room: A462 Gender: M Hearing Specialist: : 1990 Requested By: PIYUSH SUE Order Number: [id number] Reading MD: Fredy Navarrete Measurements Intervals [place] Rate: 121 P: 51 NH: 168 QRS: 47 QRSD: 68 T: -59 QT: 281 QTc: 399 Interpretive Statements Sinus tachycardia Borderline T abnormalities, diffuse leads No previous ECG available for comparison Electronically Signed On 05-24-2020 11:32:24 EDT by Fredy Navarrete
--- NOTE | 2020-05-24 11:35 | Progress Note ---
Assessment and Plan 1. Nephrotic syndrome: Presented with edema and hypoalbuminemia. Urine Protein: 4 gms Could be related to morbid obesity. Renal function is normal. NABIL, ANCA, Complements, SPEP and Hepatitis Panel ordered. On Lisinopril. Avoid nephrotoxic agents. 2. FEN: Volume overload, IV Lasix and Metolazone. Strict I/Os. Monitor lytes and volume status. 3. Acute hypoxic respiratory failure:- Monitor. Unable to get CT chest secondary to weight as well as patient's refusal to lie flat. 4. HFpEF: Lasix and Metolazone. 5. Elevated D-dimer: Unable to get CT chest. Monitor. 6. Sinus pause/transient second-degree AV block: Resolved after discontinuation of AV alisson blocking agent. Followed by Cardiology. 7. Leukocytosis: Monitor. 8. Schizophrenia/bipolar disorder. 9. Tobacco abuse. Subjective: Patient was seen and examined at the bedside. Objective: General appearance: well-developed, appears stated age, not in distress, obese HEENT: ATNC Neck: trachea midline Respiratory: ctab Heart: regular, S1S2, no murmur Abdomen: soft, obese, normoactive bowel sounds, not tender Integumentary: no rash, warm and dry Ext: 2+ LE edema, scrotal edema noted Neurologic: alert, not answering the question Subjective Date of service: 05/24/20 Principal diagnosis: anasarca Objective - Vital Signs Vital signs: Vital Signs - 12hr 05/24/20 04:05 Temperature 97.9 F Pulse Rate 94 H Respiratory 20 Rate Blood Pressure 148/88 O2 Sat by Pulse 100 Oximetry - Lab 05/24/20 05:30 05/24/20 05:30 Most recent lab results Calcium 7.4 mg/dL (8.4-10.2) L 05/24/20 05:30 Magnesium 2.00 mg/dL (1.7-2.3) 05/20/20 16:42 Urine Creatinine 130.6 mg/dL (0.1-20.0) H 05/23/20 22:37 Urine Total Protein 528 mg/dL (5-11.8) H 05/23/20 22:37 Medications & Allergies - Medications Allergies/Adverse Reactions: Allergies No Known Allergies Allergy (Verified 12/20/19 03:26) Home Medications: Home Medications Medication Instructions Recorded Confirmed Last Taken Type Paliperidone Palmitate [Invega 156 mg IM QMONTH 12/20/19 05/21/20 05/10/20 History Sustenna] Divalproex ER [DepaKOTE ER] 1,500 mg PO QHS 05/21/20 05/21/20 05/19/20 History Active Medications: Generic Name Dose Route Start Last Admin Trade Name Freq PRN Reason Stop Dose Admin Albuterol 2.5 mg 05/21/20 02:37 Albuterol 2.5 Mg/3 Ml Nebu IH Q4HRT PRN Shortness Of Breath Bupropion HCl 100 mg 05/21/20 10:00 05/24/20 10:44 Bupropion 100 Mg Tab PO 100 mg DAILY LAURY Administration Furosemide 40 mg 05/21/20 06:00 05/24/20 05:46 Furosemide 40 Mg/4 Ml Inj IV 40 mg BID@0600,1800 LAURY Administration Heparin Sodium (Porcine) 5,500 unit 05/21/20 12:08 05/22/20 19:09 Heparin 10,000 Units/10 Ml Vial 40 unit/kg (5500 unit) 5,500 unit IV Administration Q6H PRN Anti-Xa Assay < 0.1 units/ml Heparin Sodium/Sodium Chloride 25,000 unit in 500 mls @ 30 mls/hr 05/21/20 13:00 05/24/20 01:58 Heparin/ 0.45% Nacl-25,000 Unit/500 Ml IV 2,150 units/hr TITR LAURY 43 mls/hr Administration Protocol 1,500 UNITS/HR Lisinopril 10 mg 05/21/20 10:00 05/24/20 10:44 Lisinopril 10 Mg Tab PO 10 mg QDAY LAURY Administration Lorazepam 1 mg 05/24/20 11:00 Lorazepam 2 Mg/Ml Vial IV Q8H PRN Agitation Metolazone 5 mg 05/24/20 11:00 05/24/20 10:45 Metolazone 5 Mg Tab PO 5 mg QDAY LAURY Administration Nicotine 14 mg 05/21/20 02:58 Nicotine 14 Mg/24 Hr Patch TD QDAY PRN smoking cessation
[2020-05-24] MEDS: FUROSEMIDE 100 MG/10 ML INJ IV SCH ×2 (13:04→18:47)
--- NOTE | 2020-05-24 18:03 | Cat Scan Report ---
CTA CHEST WITH IV CONTRAST INDICATION / CLINICAL INFORMATION: MAIN. TECHNIQUE: Axial CT images were obtained through the chest after injection of 100 cc Omnipaque 350 milligrams pe rcent IV contrast. 3 plane MIP and/or 3D reconstructions were produced. All CT scans at this location are performed using CT dose reduction for ALARA by means of automated exposure control. COMPARISON: None available. FINDINGS: PULMONARY ARTERIES: Poor contrast enhancement with extensive motion artifact nondiagnostic for pulmon nik embolic disease THORACIC AORTA: No significant abnormality. HEART: No significant abnormality. CORONARY ARTERIES: No significant calcification. PLEURA: No pleural effusion. No pneumothorax. LYMPH NODES: No significant adenopathy. LUNGS: Patchy airspace changes both lower lobes small bilateral pleural effusions ADDITIONAL FINDINGS: None. UPPER ABDOMEN: No acute findings. SKELETAL STRUCTURES: No significant osseous abnormality. IMPRESSION: 1. Nondiagnostic for pulmonary embolic disease. 2. Patchy parenchyma changes both lower lobes small bilateral pleural effusions, pneumonia is a roderick rn Signer Name: Jonathan Luciano MD Signed: 05/24/2020 5:59 PM Workstation Name: [id number]
[2020-05-25] MEDS: HEPARIN/ 0.45% NACL DRIP 25,000 UNIT/500 ML BAG IV SCH ×2 (02:49→14:43)
[2020-05-25] MEDS: FUROSEMIDE 100 MG/10 ML INJ IV SCH ×2 (05:44→18:36)
[2020-05-25 06:09] LABS: Basophils # (Auto) 0.1 K/mm3 (0.0-0.1); Basophils % (Auto) 0.9 % (0.0-1.8); Eosinophils # (Auto) 0.4 K/mm3 (0.0-0.4); Eosinophils % (Auto) 3.4 % (0.0-4.3); Hematocrit 30.7 % (35.5-45.6); Hemoglobin 10.3 gm/dl (11.8-15.2); Lymphocytes # (Auto) 3.6 K/mm3 (1.2-5.4); Lymphocytes % (Auto) 30.4 % (13.4-35.0); Mean Corpuscular HGB Conc 34 % (32-34); Mean Corpuscular Volume 83 fl (84-94); Monocytes # (Auto) 1.4 K/mm3 (0.0-0.8); Monocytes % (Auto) 11.4 % (0.0-7.3); Platelet Count 391 K/mm3 (140-440); Red Blood Count 3.69 M/mm3 (3.65-5.03); Red Cell Distribution Width 15.2 % (13.2-15.2)
[2020-05-25 06:23] LABS: BUN/Creatinine Ratio 17; Blood Urea Nitrogen 12 mg/dL (9-20); Calcium 7.8 mg/dL (8.4-10.2); Hemolysis Index 4
[2020-05-25 07:10] LABS: Hepatitis B Surface Antigen Non-Reactive (Negative); Hepatitis C Virus Antibody Non-Reactive (NonReactive)
--- NOTE | 2020-05-25 10:05 | Progress Note ---
Assessment and Plan Assessment and plan: 29-year-old obese -[place] Islander male with history of schizophrenia and bipolar disorder who presents to [facility] ED via EMS with complaints of difficulty in breathing and generalized edema. Patient was taking Hydroxycut (OTC weight loss supplement) approximately 2 weeks ago, believes this has something to do with this anasarca. Patient admitted for heart failure work-up. Acute hypoxic respiratory failure Nephrotic syndrome Hypoalbuminemia. Diastolic heart failure Elevated D-dimer Sinus pause/transient second-degree AV block. Anasarca Leukocytosis Schizophrenia/bipolar disorder Tobacco abuse Hospital course: 05/21 patient seen, continues to have significant anasarca. Patient is refusing Moe catheter. 05/22. Left ventricular systolic function normal with EF of 55 to 60%. Mild d iastolic dysfunction. RVSP 27 mmHg. Await cardiology evaluation. Continue Lasix, Coreg. Await CTA of the chest given elevated D-dimer. Continue empiric IV heparin for now. Patient with probable JONA/OHS. Covid testing negative. 05/23. Patient unable to do CTA of the chest or VQ scan because inability to lie flat on the table. Nephrology consulted for anasarca and severe hypoalbuminemia. Continue empiric IV heparin. Patient reportedly with several sinus pauses (longest pause 4 sec) and transient second degree type II AV block noted yesterday. AV alisson blocking agents discontinued 05/24 patient now in agreement to continue to try CT scan. Along with Ativan and uplifting of his scrotum. No further pauses at this time after AV alisson blocking agent discontinued. At present remains hemodynamically stable. 05/25. CTA of the chest negative for PE. However, patchy parenchymal changes both lower lobes, small bilateral pleural effusions with concern for pneumonia. Patient does have elevated D-dimer. Check other inflammatory markers and COVID- 19 testing. Nephrology following for nephrotic syndrome History Interval history: 29-year-old obese -[place] Islander male with history of schizophrenia and bipolar disorder who presents to [facility] ED via EMS with complaints of difficulty in breathing and generalized edema. Patient was taking Hydroxycut (OTC weight loss supplement) approximately 2 weeks ago, believes this has something to do w ith this anasarca. Patient admitted for heart failure work-up. No new issues overnight Hospitalist Physical - Constitutional Vitals: Temp Pulse Resp BP Pulse Ox 97.4 F L 89 18 174/61 98 05/25/20 08:52 05/25/20 08:52 05/25/20 08:52 05/25/20 08:52 05/25/20 08:52 General appearance: Present: no acute distress, obese - EENT Eyes: Present: PERRL, EOM intact ENT: hearing intact, clear oral mucosa, dentition normal - Neck Neck: Present: supple, normal ROM - Respiratory Respiratory effort: normal Respiratory: bilateral: CTA - Cardiovascular Rhythm: regular Heart Sounds: Present: S1 & S2. Absent: gallop, rub - Extremities Extremities: no ischemia, No edema, Full ROM - Abdominal General gastrointestinal: soft, non-tender, non-distended, normal bowel sounds - Integumentary Integumentary: Present: clear, warm, dry - Neurologic Neurologic: CNII-XII intact, moves all extremities HEART Score - HEART Score Troponin: Troponin T < 0.010 ng/mL (0.00-0.029) 05/21/20 00:23 Results - Labs CBC & Chem 7: 05/25/20 05:47 05/25/20 05:47 Labs: Laboratory Last Values WBC 11.9 K/mm3 (4.5-11.0) H 05/25/20 05:47 RBC 3.69 M/mm3 (3.65-5.03) 05/25/20 05:47 Hgb 10.3 gm/dl (11.8-15.2) L 05/25/20 05:47 Hct 30.7 % (35.5-45.6) L 05/25/20 05:47 MCV 83 fl (84-94) L 05/25/20 05:47 MCH 28 pg (28-32) 05/25/20 05:47 MCHC 34 % (32-34) 05/25/20 05:47 RDW 15.2 % (13.2-15.2) 05/25/20 05:47 Plt Count 391 K/mm3 (140-440) 05/25/20 05:47 Lymph % (Auto) 30.4 % (13.4-35.0) 05/25/20 05:47 [place] % (Auto) 11.4 % (0.0-7.3) H 05/25/20 05:47 Eos % (Auto) 3.4 % (0.0-4.3) 05/25/20 05:47 Baso % (Auto) 0.9 % (0.0-1.8) 05/25/20 05:47 Lymph # (Auto) 3.6 K/mm3 (1.2-5.4) 05/25/20 05:47 [place] # (Auto) 1.4 K/mm3 (0.0-0.8) H 05/25/20 05:47 Eos # (Auto) 0.4 K/mm3 (0.0-0.4) 05/25/20 05:47 Baso # (Auto) 0.1 K/mm3 (0.0-0.1) 05/25/20 05:47 Seg Neutrophils % 53.9 % (40.0-70.0) 05/25/20 05:47 Seg Neutrophils # 6.4 K/mm3 (1.8-7.7) 05/25/20 05:47 PT 13.0 Sec. (12.2-14.9) 05/21/20 13:52 INR 0.99 (0.87-1.13) 05/21/20 13:52 APTT 27.8 Sec. (24.2-36.6) 05/21/20 13:52 D-Dimer 3507.99 ng/mlDDU (0-234) H 05/21/20 04:45 Heparin Anti-Xa Level 0.40 U.I./ml (0.3-0.7) 05/25/20 05:47 Sodium 136 mmol/L (137-145) L 05/25/20 05:47 Potassium 3.8 mmol/L (3.6-5.0) 05/25/20 05:47 Chloride 99.6 mmol/L (98-107) 05/25/20 05:47 Carbon Dioxide 27 mmol/L (22-30) 05/25/20 05:47 Anion Gap 13 mmol/L 05/25/20 05:47 BUN 12 mg/dL (9-20) 05/25/20 05:47 Creatinine 0.7 mg/dL (0.8-1.3) L 05/25/20 05:47 Estimated GFR > 60 ml/min 05/25/20 05:47 BUN/Creatinine Ratio 17 % 05/25/20 05:47 Glucose 97 mg/dL (75-100) 05/25/20 05:47 Hemoglobin A1c 5.5 % (4-6) 05/21/20 03:00 Lactic Acid 1.00 mmol/L (0.7-2.0) 05/21/20 03:00 Calcium 7.8 mg/dL (8.4-10.2) L 05/25/20 05:47 Phosphorus 4.10 mg/dL (2.5-4.5) 05/25/20 05:47 Magnesium 2.10 mg/dL (1.7-2.3) 05/25/20 05:47 Ferritin 147.0 ng/mL (30.0-300.0) 05/21/20 03:00 Total Bilirubin < 0.20 mg/dL (0.1-1.2) 05/20/20 16:42 AST 10 units/L (5-40) 05/20/20 16:42 ALT 6 units/L (7-56) L 05/20/20 16:42 Alkaline Phosphatase 79 units/L (35-129) 05/20/20 16:42 Lactate Dehydrogenase 179 units/L (91-180) 05/21/20 03:00 Troponin T < 0.010 ng/mL (0.00-0.029) 05/21/20 00:23 NT-Pro-B Natriuret Pep 119.3 pg/mL (0-450) 05/20/20 19:59 Total Protein 4.6 g/dL (6.3-8.2) L 05/20/20 16:42 Albumin 1.6 g/dL (3.9-5) L 05/20/20 16:42 Albumin/Globulin Ratio 0.5 % 05/20/20 16:42 TSH 4.210 mlU/mL (0.270-4.200) H 05/22/20 13:44 Free T4 0.75 ng/dL (0.76-1.46) L 05/22/20 13:44 Urine Color Yellow (Yellow) 05/21/20 09:30 Urine Turbidity Hazy (Clear) 05/21/20 09:30 Urine pH 6.0 (5.0-7.0) 05/21/20 09:30 Ur Specific [place] 1.010 (1.003-1.030) 05/21/20 09:30 Urine Protein 100 mg/dl mg/dL (Negative) 05/21/20 09:30 Urine Glucose (UA) Neg mg/dL (Negative) 05/21/20 09:30 Urine Ketones Neg mg/dL (Negative) 05/21/20 09:30 Urine Blood Mod (Negative) 05/21/20 09:30 Urine Nitrite Neg (Negative) 05/21/20 09:30 Urine Bilirubin Neg (Negative) 05/21/20 09:30 Urine Urobilinogen < 2.0 mg/dL (<2.0) 05/21/20 09:30 Ur Leukocyte Esterase Neg (Negative) 05/21/20 09:30 Urine WBC (Auto) 4.0 /HPF (0.0-6.0) 05/21/20 09:30 Urine RBC (Auto) 10.0 /HPF (0.0-6.0) 05/21/20 09:30 U Epithel Cells (Auto) < 1.0 /HPF (0-13.0) 05/21/20 09:30 Urine Creatinine 130.6 mg/dL (0.1-20.0) H 05/23/20 22:37 Protein/Creatinin Ratio 4.04 05/23/20 22:37 Urine Total Protein 528 mg/dL (5-11.8) H 05/23/20 22:37 Urine Opiates Screen Negative 05/21/20 09:30 Urine Methadone Screen Negative 05/21/20 09:30 Ur Barbiturates Screen Negative 05/21/20 09:30 Ur Phencyclidine Scrn Negative 05/21/20 09:30 Ur Amphetamines Screen Negative 05/21/20 09:30 U Benzodiazepines Scrn Negative 05/21/20 09:30 Urine Cocaine Screen Negative 05/21/20 09:30 U Marijuana (THC) Screen Negative 05/21/20 09:30 Drugs of Abuse Note Disclamer 05/21/20 09:30 Coronavirus (PCR) Negative (Negative) 05/21/20 09:58 Hepatitis A IgM Ab Non-reactive (NonReactive) 05/25/20 05:47 Hep Bs Antigen Non-reactive (Negative) 05/25/20 05:47 Hep B Core IgM Ab Non-reactive (NonReactive) 05/25/20 05:47 Hepatitis C Antibody Non-reactive (NonReactive) 05/25/20 05:47 Microbiology: Microbiology 05/21/20 04:45 Peripheral/Venous Blood Culture - Preliminary NO GROWTH AFTER 4 DAYS 05/21/20 03:00 Peripheral/Venous Blood Culture - Preliminary NO GROWTH AFTER 4 DAYS Moe/IV: Voiding Method Urinal Active Medications - Current Medications Current Medications: Generic Name Dose Route Start Last Admin Trade Name Freq PRN Reason Stop Dose Admin Albuterol 2.5 mg 05/21/20 02:37 Albuterol 2.5 Mg/3 Ml Nebu IH Q4HRT PRN Shortness Of Breath Bupropion HCl 100 mg 05/21/20 10:00 05/24/20 10:44 Bupropion 100 Mg Tab PO 100 mg DAILY LAURY Administration Furosemide 80 mg 05/24/20 12:35 05/25/20 05:44 Furosemide 100 Mg/10 Ml Inj IV 80 mg BID@0600,1800 LAURY Administration Heparin Sodium (Porcine) 5,500 unit 05/21/20 12:08 05/22/20 19:09 Heparin 10,000 Units/10 Ml Vial 40 unit/kg (5500 unit) 5,500 unit IV Administration Q6H PRN Anti-Xa Assay < 0.1 units/ml Heparin Sodium/Sodium Chloride 25,000 unit in 500 mls @ 30 mls/hr 05/21/20 13:00 05/25/20 06:25 Heparin/ 0.45% Nacl-25,000 Unit/500 Ml IV 2,450 units/hr TITR LARUY 49 mls/hr Titration Protocol 1,500 UNITS/HR Lisinopril 10 mg 05/21/20 10:00 05/24/20 10:44 Lisinopril 10 Mg Tab PO 10 mg QDAY LAURY Administration Lorazepam 1 mg 05/24/20 11:00 Lorazepam 2 Mg/Ml Vial IV Q8H PRN Agitation Metolazone 5 mg 05/24/20 11:00 05/24/20 10:45 Metolazone 5 Mg Tab PO 5 mg QDAY LAURY Administration Nicotine 14 mg 05/21/20 02:58 Nicotine 14 Mg/24 Hr Patch TD QDAY PRN smoking cessation
[2020-05-25] MEDS: LISINOPRIL 10 MG TAB PO SCH (11:10)
[2020-05-25] MEDS: buPROPion 100 MG TAB PO SCH (11:10)
[2020-05-25] MEDS: metOLazone 5 MG TAB PO SCH (11:11)
--- NOTE | 2020-05-25 11:18 | Progress Note ---
Assessment and Plan 1. Nephrotic syndrome: Presented with edema and hypoalbuminemia. Urine Protein: 4 gms Could be related to morbid obesity. Suspected GN. Renal function is normal. NABIL, ANCA, Complements, SPEP and Hepatitis Panel ordered. On Lisinopril. Avoid nephrotoxic agents. 2. FEN: Volume overload, IV Lasix and Metolazone. Strict I/Os. Monitor lytes and volume status. 3. Acute hypoxic respiratory failure:- Monitor. CTA negative for PE. 4. HFpEF: Lasix and Metolazone. 5. Elevated D-dimer: CTA chest negative for PE. Monitor. 6. Sinus pause/transient second-degree AV block: Resolved after discontinuation of AV alisson blocking agent. Followed by Cardiology. 7. Leukocytosis: Monitor. 8. Schizophrenia/bipolar disorder. 9. Tobacco abuse. Subjective: Patient was seen and examined at the bedside. Objective: General appearance: well-developed, appears stated age, not in distress, obese HEENT: ATNC Neck: trachea midline Respiratory: ctab Heart: regular, S1S2, no murmur Abdomen: soft, obese, normoactive bowel sounds, not tender Integumentary: no rash, warm and dry Ext: 2+ LE edema, scrotal edema noted Neurologic: alert, able to move extremities Subjective Date of service: 05/25/20 Principal diagnosis: anasarca Objective - Vital Signs Vital signs: Vital Signs - 12hr 05/25/20 05/25/20 05/25/20 00:03 04:05 08:51 Temperature 98.6 F 99.2 F Pulse Rate 98 H 96 H Respiratory 18 19 Rate Blood Pressure 145/77 Blood Pressure 153/94 [Left] O2 Sat by Pulse 95 100 100 Oximetry 05/25/20 08:52 Temperature 97.4 F L Pulse Rate 89 Respiratory 18 Rate Blood Pressure 174/61 Blood Pressure [Left] O2 Sat by Pulse 98 Oximetry - Lab 05/25/20 05:47 05/25/20 05:47 Most recent lab results Calcium 7.8 mg/dL (8.4-10.2) L 05/25/20 05:47 Phosphorus 4.10 mg/dL (2.5-4.5) 05/25/20 05:47 Magnesium 2.10 mg/dL (1.7-2.3) 05/25/20 05:47 Urine Creatinine 130.6 mg/dL (0.1-20.0) H 05/23/20 22:37 Urine Total Protein 528 mg/dL (5-11.8) H 05/23/20 22:37 Medications & Allergies - Medications Allergies/Adverse Reactions: Allergies No Known Allergies Allergy (Verified 12/20/19 03:26) Home Medications: Home Medications Medication Instructions Recorded Confirmed Last Taken Type Paliperidone Palmitate [Invega 156 mg IM QMONTH 12/20/19 05/21/20 05/10/20 History Sustenna] Divalproex ER [DepaKOTE ER] 1,500 mg PO QHS 05/21/20 05/21/20 05/19/20 History Active Medications: Generic Name Dose Route Start Last Admin Trade Name Freq PRN Reason Stop Dose Admin Albuterol 2.5 mg 05/21/20 02:37 Albuterol 2.5 Mg/3 Ml Nebu IH Q4HRT PRN Shortness Of Breath Bupropion HCl 100 mg 05/21/20 10:00 05/25/20 11:10 Bupropion 100 Mg Tab PO 100 mg DAILY LAURY Administration Furosemide 80 mg 05/24/20 12:35 05/25/20 05:44 Furosemide 100 Mg/10 Ml Inj IV 80 mg BID@0600,1800 LAURY Administration Heparin Sodium (Porcine) 5,500 unit 05/21/20 12:08 05/22/20 19:09 Heparin 10,000 Units/10 Ml Vial 40 unit/kg (5500 unit) 5,500 unit IV Administration Q6H PRN Anti-Xa Assay < 0.1 units/ml Heparin Sodium/Sodium Chloride 25,000 unit in 500 mls @ 30 mls/hr 05/21/20 13:00 05/25/20 06:25 Heparin/ 0.45% Nacl-25,000 Unit/500 Ml IV 2,450 units/hr TITR LAURY 49 mls/hr Titration Protocol 1,500 UNITS/HR Lisinopril 10 mg 05/21/20 10:00 05/25/20 11:10 Lisinopril 10 Mg Tab PO 10 mg QDAY LAURY Administration Lorazepam 1 mg 05/24/20 11:00 Lorazepam 2 Mg/Ml Vial IV Q8H PRN Agitation Metolazone 5 mg 05/24/20 11:00 05/25/20 11:11 Metolazone 5 Mg Tab PO 5 mg QDAY LAURY Administration Nicotine 14 mg 05/21/20 02:58 Nicotine 14 Mg/24 Hr Patch TD QDAY PRN smoking cessation
[2020-05-25 11:43] LABS: C-Reactive Protein 1.6 mg/dL (0.00-1.30)
[2020-05-26] MEDS: HEPARIN/ 0.45% NACL DRIP 25,000 UNIT/500 ML BAG IV SCH (05:41)
[2020-05-26] MEDS: FUROSEMIDE 100 MG/10 ML INJ IV SCH ×2 (05:42→17:35)
[2020-05-26 06:18] LABS: Basophils # (Auto) 0.1 K/mm3 (0.0-0.1); Basophils % (Auto) 1.3 % (0.0-1.8); Eosinophils # (Auto) 0.5 K/mm3 (0.0-0.4); Eosinophils % (Auto) 4.2 % (0.0-4.3); Hematocrit 30.6 % (35.5-45.6); Lymphocytes # (Auto) 3.4 K/mm3 (1.2-5.4); Lymphocytes % (Auto) 29.9 % (13.4-35.0); Mean Corpuscular HGB Conc 33 % (32-34); Mean Corpuscular Volume 83 fl (84-94); Monocytes # (Auto) 1.5 K/mm3 (0.0-0.8); Monocytes % (Auto) 13.1 % (0.0-7.3); Platelet Count 346 K/mm3 (140-440); Red Blood Count 3.67 M/mm3 (3.65-5.03)
[2020-05-26 06:25] LABS: Blood Urea Nitrogen 13 mg/dL (9-20); Calcium 7.7 mg/dL (8.4-10.2); Hemolysis Index 5
[2020-05-26 06:31] LABS: BUN/Creatinine Ratio 19
[2020-05-26] MEDS: HEPARIN 10,000 UNITS/10 ML VIAL IV PRN (07:26)
[2020-05-26] MEDS: LISINOPRIL 10 MG TAB PO SCH (10:16)
[2020-05-26] MEDS: buPROPion 100 MG TAB PO SCH (10:16)
[2020-05-26] MEDS: metOLazone 5 MG TAB PO SCH (10:16)
--- NOTE | 2020-05-26 10:19 | Progress Note ---
Assessment and Plan 1. Nephrotic syndrome: Presented with edema and hypoalbuminemia. Urine Protein: 4 gms Could be related to morbid obesity. Suspected GN. NABIL, ANCA, Complements, SPEP and Hepatitis Panel ordered. Renal function is normal. On Lisinopril. Avoid nephrotoxic agents. 2. FEN: Volume overload, IV Lasix and Metolazone. Strict I/Os. Monitor lytes and volume status. 3. Acute hypoxic respiratory failure:- Monitor. CTA negative for PE. 4. HFpEF: Lasix and Metolazone. 5. Elevated D-dimer: CTA chest negative for PE. Monitor. 6. Sinus pause/transient second-degree AV block: Resolved after discontinuation of AV alisson blocking agent. Followed by Cardiology. 7. Leukocytosis: Monitor. 8. Schizophrenia/bipolar disorder. 9. Tobacco abuse. Subjective: Patient was seen and examined at the bedside. Objective: General appearance: well-developed, appears stated age, not in distress, obese HEENT: ATNC Neck: trachea midline Respiratory: ctab Heart: regular, S1S2, no murmur Abdomen: soft, obese, normoactive bowel sounds, not tender Integumentary: no rash, warm and dry Ext: 2+ LE edema, scrotal edema noted Neurologic: alert, able to move extremities Subjective Date of service: 05/26/20 Principal diagnosis: anasarca Objective - Vital Signs Vital signs: Vital Signs - 12hr 05/25/20 05/26/20 05/26/20 23:00 04:22 08:26 Temperature 98.9 F 99.2 F Pulse Rate 88 93 H 91 H Respiratory 19 18 20 Rate Blood Pressure 129/69 142/67 Blood Pressure 147/88 [Left] O2 Sat by Pulse 98 100 97 Oximetry - Lab 05/26/20 05:16 05/26/20 05:16 Most recent lab results Calcium 7.7 mg/dL (8.4-10.2) L 05/26/20 05:16 Phosphorus 4.10 mg/dL (2.5-4.5) 05/25/20 05:47 Magnesium 2.10 mg/dL (1.7-2.3) 05/25/20 05:47 Urine Creatinine 130.6 mg/dL (0.1-20.0) H 05/23/20 22:37 Urine Total Protein 528 mg/dL (5-11.8) H 05/23/20 22:37 Medications & Allergies - Medications Allergies/Adverse Reactions: Allergies No Known Allergies Allergy (Verified 12/20/19 03:26) Home Medications: Home Medications Medication Instructions Recorded Confirmed Last Taken Type Paliperidone Palmitate [Invega 156 mg IM QMONTH 12/20/19 05/21/20 05/10/20 Histo ry Sustenna] Divalproex ER [DepaKOTE ER] 1,500 mg PO QHS 05/21/20 05/21/20 05/19/20 History Active Medications: Generic Name Dose Route Start Last Admin Trade Name Freq PRN Reason Stop Dose Admin Albuterol 2.5 mg 05/21/20 02:37 Albuterol 2.5 Mg/3 Ml Nebu IH Q4HRT PRN Shortness Of Breath Bupropion HCl 100 mg 05/21/20 10:00 05/26/20 10:16 Bupropion 100 Mg Tab PO 100 mg DAILY LAURY Administration Furosemide 80 mg 05/24/20 12:35 05/26/20 05:42 Furosemide 100 Mg/10 Ml Inj IV 80 mg BID@0600,1800 LAURY Administration Lisinopril 10 mg 05/21/20 10:00 05/26/20 10:16 Lisinopril 10 Mg Tab PO 10 mg QDAY LAURY Administration Lorazepam 1 mg 05/24/20 11:00 Lorazepam 2 Mg/Ml Vial IV Q8H PRN Agitation Metolazone 5 mg 05/24/20 11:00 05/26/20 10:16 Metolazone 5 Mg Tab PO 5 mg QDAY LAURY Administration Nicotine 14 mg 05/21/20 02:58 Nicotine 14 Mg/24 Hr Patch TD QDAY PRN smoking cessation
--- NOTE | 2020-05-26 10:37 | Progress Note ---
Assessment and Plan Assessment and plan: 29-year-old obese -[place] male with history of schizophrenia and bipolar disorder who presents to [facility]YCHIATRIC ED via EMS with complaints of difficulty in breathing and generalized edema. Patient was taking Hydroxycut (OTC weight loss supplement) approximately 2 weeks ago, believes this has something to do with this anasarca. Patient admitted for heart failure work-up. Acute hypoxic respiratory failure Nephrotic syndrome Hypoalbuminemia. Mild diastolic heart failure Elevated D-dimer Sinus pause/transient second-degree AV block. Anasarca Leukocytosis Schizophrenia/bipolar disorder Tobacco abuse Hospital course: 05/21 patient seen, continues to have significant anasarca. Patient is refusing Moe catheter. 05/22. Left ventricular systolic function normal with EF of 55 to 60%. Mild diastolic dysfunction. RVSP 27 mmHg. Await cardiology evaluation. Continue Lasix, Coreg. Await CTA of the chest given elevated D-dimer. Continue empiric IV heparin for now. Patient with probable JONA/OHS. Covid testing negative. 05/23. Patient unable to do CTA of the chest or VQ scan because inability to lie flat on the table. Nephrology consulted for anasarca and severe hypoalbuminemi a. Continue empiric IV heparin. Patient reportedly with several sinus pauses (longest pause 4 sec) and transient second degree type II AV block noted yesterday. AV alisson blocking agents discontinued 05/24 patient now in agreement to continue to try CT scan. Along with Ativan and uplifting of his scrotum. No further pauses at this time after AV alisson blocking agent discontinued. At present remains hemodynamically stable. 05/25. CTA of the chest negative for PE. However, patchy parenchymal changes both lower lobes, small bilateral pleural effusions with concern for pneumonia. Patient does have elevated D-dimer. Check other inflammatory markers and COVID- 19 testing. Nephrology following for nephrotic syndrome 05/26. Discontinue heparin given negative CTA of chest. COVID-19 testing negative on 05/21/2020. AV alisson blocking agents discontinued given sinus pauses and transient second-degree AV block. Continue to monitor on telemetry. Nephrology suspects nephrotic syndrome. Urine protein 4 g. ? Glomerulonephritis. Follow-up NABIL, ANCA, Complements, SPEP and Hepatitis Panel ordered. Cardiology reports diastolic heart failure not severe enough to cause the degree of anasarca. History Interval history: 29-year-old obese -[place] male with history of schizophrenia and bipolar disorder who presents to PSYCHIATRIC ED via EMS with complaints of difficulty in breathing and generalized edema. Patient was taking Hydroxycut (OTC weight loss supplement) approximately 2 weeks ago, believes this has something to do with this anasarca. Patient admitted for heart failure work-up. No new issues overnight Hospitalist Physical - Constitutional Vitals: Temp Pulse Resp BP Pulse Ox 99.2 F 91 H 20 142/67 97 05/26/20 04:22 05/26/20 08:26 05/26/20 08:26 05/26/20 08:26 05/26/20 08:26 General appearance: Present: no acute distress, obese - EENT Eyes: Present: PERRL, EOM intact ENT: hearing intact, clear oral mucosa, dentition normal - Neck Neck: Present: supple, normal ROM - Respiratory Respiratory effort: normal Respiratory: bilateral: CTA - Cardiovascular Rhythm: regular Heart Sounds: Present: S1 & S2. Absent: gallop, rub - Extremities Extremities: no ischemia, No edema, Full ROM - Abdominal General gastrointestinal: soft, non-tender, non-distended, normal bowel sounds - Integumentary Integumentary: Present: clear, warm, dry - Neurologic Neurologic: CNII-XII intact, moves all extremities HEART Score - HEART Score Troponin: Troponin T < 0.010 ng/mL (0.00-0.029) 05/21/20 00:23 Results - Labs CBC & Chem 7: 05/26/20 05:16 05/26/20 05:16 Labs: Laboratory Last Values WBC 11.3 K/mm3 (4.5-11.0) H 05/26/20 05:16 RBC 3.67 M/mm3 (3.65-5.03) 05/26/20 05:16 Hgb 10.0 gm/dl (11.8-15.2) L 05/26/20 05:16 Hct 30.6 % (35.5-45.6) L 05/26/20 05:16 MCV 83 fl (84-94) L 05/26/20 05:16 MCH 27 pg (28-32) L 05/26/20 05:16 MCHC 33 % (32-34) 05/26/20 05:16 RDW 15.0 % (13.2-15.2) 05/26/20 05:16 Plt Count 346 K/mm3 (140-440) 05/26/20 05:16 Lymph % (Auto) 29.9 % (13.4-35.0) 05/26/20 05:16 [place] % (Auto) 13.1 % (0.0-7.3) H 05/26/20 05:16 Eos % (Auto) 4.2 % (0.0-4.3) 05/26/20 05:16 Baso % (Auto) 1.3 % (0.0-1.8) 05/26/20 05:16 Lymph # (Auto) 3.4 K/mm3 (1.2-5.4) 05/26/20 05:16 [place] # (Auto) 1.5 K/mm3 (0.0-0.8) H 05/26/20 05:16 Eos # (Auto) 0.5 K/mm3 (0.0-0.4) H 05/26/20 05:16 Baso # (Auto) 0.1 K/mm3 (0.0-0.1) 05/26/20 05:16 Seg Neutrophils % 51.5 % (40.0-70.0) 05/26/20 05:16 Seg Neutrophils # 5.8 K/mm3 (1.8-7.7) 05/26/20 05:16 PT 13.0 Sec. (12.2-14.9) 05/21/20 13:52 INR 0.99 (0.87-1.13) 05/21/20 13:52 APTT 27.8 Sec. (24.2-36.6) 05/21/20 13:52 D-Dimer 1321.92 ng/mlDDU (0-234) H 05/25/20 05:47 Heparin Anti-Xa Level < 0.10 U.I./ml (0.3-0.7) L 05/26/20 05:16 Sodium 134 mmol/L (137-145) L 05/26/20 05:16 Potassium 3.8 mmol/L (3.6-5.0) 05/26/20 05:16 Chloride 98.8 mmol/L (98-107) 05/26/20 05:16 Carbon Dioxide 27 mmol/L (22-30) 05/26/20 05:16 Anion Gap 12 mmol/L 05/26/20 05:16 BUN 13 mg/dL (9-20) 05/26/20 05:16 Creatinine 0.7 mg/dL (0.8-1.3) L 05/26/20 05:16 Estimated GFR > 60 ml/min 05/26/20 05:16 BUN/Creatinine Ratio 19 % 05/26/20 05:16 Glucose 90 mg/dL (75-100) 05/26/20 05:16 Hemoglobin A1c 5.5 % (4-6) 05/21/20 03:00 Lactic Acid 1.00 mmol/L (0.7-2.0) 05/21/20 03:00 Calcium 7.7 mg/dL (8.4-10.2) L 05/26/20 05:16 Phosphorus 4.10 mg/dL (2.5-4.5) 05/25/20 05:47 Magnesium 2.10 mg/dL (1.7-2.3) 05/25/20 05:47 Ferritin 265.5 ng/mL (30.0-300.0) 05/25/20 05:47 Total Bilirubin < 0.20 mg/dL (0.1-1.2) 05/20/20 16:42 AST 10 units/L (5-40) 05/20/20 16:42 ALT 6 units/L (7-56) L 05/20/20 16:42 Alkaline Phosphatase 79 units/L (35-129) 05/20/20 16:42 Lactate Dehydrogenase 171 units/L (91-180) 05/25/20 05:47 Troponin T < 0.010 ng/mL (0.00-0.029) 05/21/20 00:23 C-Reactive Protein 1.60 mg/dL (0.00-1.30) H 05/25/20 05:47 NT-Pro-B Natriuret Pep 119.3 pg/mL (0-450) 05/20/20 19:59 Total Protein 4.6 g/dL (6.3-8.2) L 05/20/20 16:42 Albumin 1.6 g/dL (3.9-5) L 05/20/20 16:42 Albumin/Globulin Ratio 0.5 % 05/20/20 16:42 TSH 4.210 mlU/mL (0.270-4.200) H 05/22/20 13:44 Free T4 0.75 ng/dL (0.76-1.46) L 05/22/20 13:44 Urine Color Yellow (Yellow) 05/21/20 09:30 Urine Turbidity Hazy (Clear) 05/21/20 09:30 Urine pH 6.0 (5.0-7.0) 05/21/20 09:30 Ur Specific [place] 1.010 (1.003-1.030) 05/21/20 09:30 Urine Protein 100 mg/dl mg/dL (Negative) 05/21/20 09:30 Urine Glucose (UA) Neg mg/dL (Negative) 05/21/20 09:30 Urine Ketones Neg mg/dL (Negative) 05/21/20 09:30 Urine Blood Mod (Negative) 05/21/20 09:30 Urine Nitrite Neg (Negative) 05/21/20 09:30 Urine Bilirubin Neg (Negative) 05/21/20 09:30 Urine Urobilinogen < 2.0 mg/dL (<2.0) 05/21/20 09:30 Ur Leukocyte Esterase Neg (Negative) 05/21/20 09:30 Urine WBC (Auto) 4.0 /HPF (0.0-6.0) 05/21/20 09:30 Urine RBC (Auto) 10.0 /HPF (0.0-6.0) 05/21/20 09:30 U Epithel Cells (Auto) < 1.0 /HPF (0-13.0) 05/21/20 09:30 Urine Creatinine 130.6 mg/dL (0.1-20.0) H 05/23/20 22:37 Protein/Creatinin Ratio 4.04 05/23/20 22:37 Urine Total Protein 528 mg/dL (5-11.8) H 05/23/20 22:37 Urine Opiates Screen Negative 05/21/20 09:30 Urine Methadone Screen Negative 05/21/20 09:30 Ur Barbiturates Screen Negative 05/21/20 09:30 Ur Phencyclidine Scrn Negative 05/21/20 09:30 Ur Amphetamines Screen Negative 05/21/20 09:30 U Benzodiazepines Scrn Negative 05/21/20 09:30 Urine Cocaine Screen Negative 05/21/20 09:30 U Marijuana (THC) Screen Negative 05/21/20 09:30 Drugs of Abuse Note Disclamer 05/21/20 09:30 Coronavirus (PCR) Negative (Negative) 05/21/20 09:58 Hepatitis A IgM Ab Non-reactive (NonReactive) 05/25/20 05:47 Hep Bs Antigen Non-reactive (Negative) 05/25/20 05:47 Hep B Core IgM Ab Non-reactive (NonReactive) 05/25/20 05:47 Hepatitis C Antibody Non-reactive (NonReactive) 05/25/20 05:47 Microbiology: Microbiology 05/21/20 04:45 Peripheral/Venous Blood Culture - Final NO GROWTH AFTER 5 DAYS 05/21/20 03:00 Peripheral/Venous Blood Culture - Final NO GROWTH AFTER 5 DAYS Moe/IV: Voiding Method Urinal Active Medications - Current Medications Current Medications: Generic Name Dose Route Start Last Admin Trade Name Freq PRN Reason Stop Dose Admin Albuterol 2.5 mg 05/21/20 02:37 Albuterol 2.5 Mg/3 Ml Nebu IH Q4HRT PRN Shortness Of Breath Bupropion HCl 100 mg 05/21/20 10:00 05/26/20 10:16 Bupropion 100 Mg Tab PO 100 mg DAILY LAURY Administration Furosemide 80 mg 05/24/20 12:35 05/26/20 05:42 Furosemide 100 Mg/10 Ml Inj IV 80 mg BID@0600,1800 LAURY Administration Lisinopril 10 mg 05/21/20 10:00 05/26/20 10:16 Lisinopril 10 Mg Tab PO 10 mg QDAY LAURY Administration Lorazepam 1 mg 05/24/20 11:00 Lorazepam 2 Mg/Ml Vial IV Q8H PRN Agitation Metolazone 5 mg 05/24/20 11:00 05/26/20 10:16 Metolazone 5 Mg Tab PO 5 mg QDAY LAURY Administration Nicotine 14 mg 05/21/20 02:58 Nicotine 14 Mg/24 Hr Patch TD QDAY PRN smoking cessation
[2020-05-27] MEDS: FUROSEMIDE 100 MG/10 ML INJ IV SCH ×2 (05:14→17:24)
[2020-05-27 06:20] LABS: Hematocrit 32.1 % (35.5-45.6); Hemoglobin 10.7 gm/dl (11.8-15.2)
[2020-05-27 06:40] LABS: BUN/Creatinine Ratio 19; Blood Urea Nitrogen 15 mg/dL (9-20); Calcium 8.1 mg/dL (8.4-10.2); Hemolysis Index 1
[2020-05-27] MEDS: metOLazone 5 MG TAB PO SCH (09:45)
[2020-05-27] MEDS: buPROPion 100 MG TAB PO SCH (09:45)
[2020-05-27] MEDS: LISINOPRIL 10 MG TAB PO SCH (09:45)
--- NOTE | 2020-05-27 09:48 | Progress Note ---
Assessment and Plan Assessment and plan: 29-year-old obese -Malag[place] male with history of schizophrenia and bipolar disorder who presents to [facility] ED via EMS with complaints of difficulty in breathing and generalized edema. Patient was taking Hydroxycut (OTC weight loss supplement) approximately 2 weeks ago, believes this has something to do with this anasarca. Patient admitted for heart failure work-up. Acute hypoxic respiratory failure Nephrotic syndrome Hypoalbuminemia. Mild diastolic heart failure Elevated D-dimer Sinus pause/transient second-degree AV block. Anasarca Leukocytosis Schizophrenia/bipolar disorder Tobacco abuse Hospital course: 05/21 patient seen, continues to have significant anasarca. Patient is refusing Moe catheter. 05/22. Left ventricular systolic function normal with EF of 55 to 60%. Mild diastolic dysfunction. RVSP 27 mmHg. Await cardiology evaluation. Continue Lasix, Coreg. Await CTA of the chest given elevated D-dimer. Continue empiric IV heparin for now. Patient with probable JONA/OHS. Covid testing negative. 05/23. Patient unable to do CTA of the chest or VQ scan because inability to lie flat on the table. Nephrology consulted for anasarca and severe hypoalbuminemi a. Continue empiric IV heparin. Patient reportedly with several sinus pauses (longest pause 4 sec) and transient second degree type II AV block noted yesterday. AV alisson blocking agents discontinued 05/24 patient now in agreement to continue to try CT scan. Along with Ativan and uplifting of his scrotum. No further pauses at this time after AV alisson blocking agent discontinued. At present remains hemodynamically stable. 05/25. CTA of the chest negative for PE. However, patchy parenchymal changes both lower lobes, small bilateral pleural effusions with concern for pneumonia. Patient does have elevated D-dimer. Check other inflammatory markers and COVID- 19 testing. Nephrology following for nephrotic syndrome 05/26. Discontinue heparin given negative CTA of chest. COVID-19 testing negative on 05/21/2020. AV alisson blocking agents discontinued given sinus pauses and transient second-degree AV block. Continue to monitor on telemetry. Nephrology suspects nephrotic syndrome. Urine protein 4 g. ? Glomerulonephritis. Follow-up NABIL, ANCA, Complements, SPEP and Hepatitis Panel ordered. Cardiology reports diastolic heart failure not severe enough to cause the degree of anasarca. 05/27. Nephrology suspects nephrotic syndrome. Urine protein 4 g. ? Glomerulonephritis. Follow-up NABIL, ANCA, Complements, SPEP and Hepatitis Panel negative. AV alisson blocking agents discontinued given sinus pauses and transient second-degree AV block. Continue to monitor on telemetry. History Interval history: 29-year-old obese -Malag[place] male with history of schizophrenia and bipolar disorder who presents to [facility] ED via EMS with complaints of difficulty in breathing and generalized edema. Patient was taking Hydroxycut (OTC weight loss supplement) approximately 2 weeks ago, believes this has something to do with this anasarca. Patient admitted for heart failure work-up. No new issues overnight Hospitalist Physical - Constitutional Vitals: Temp Pulse Resp BP Pulse Ox 98.4 F 86 18 133/68 96 05/27/20 08:03 05/27/20 08:03 05/27/20 08:03 05/27/20 08:03 05/27/20 08:03 General appearance: Present: no acute distress, obese - EENT Eyes: Present: PERRL, EOM intact ENT: hearing intact, clear oral mucosa, dentition normal - Neck Neck: Present: supple, normal ROM - Respiratory Respiratory effort: normal Respiratory: bilateral: CTA - Cardiovascular Rhythm: regular Heart Sounds: Present: S1 & S2. Absent: gallop, rub - Extremities Extremities: no ischemia, No edema, Full ROM - Abdominal General gastrointestinal: soft, non-tender, non-distended, normal bowel sounds - Integumentary Integumentary: Present: clear, warm, dry - Neurologic Neurologic: CNII-XII intact, moves all extremities HEART Score - HEART Score Troponin: Troponin T < 0.010 ng/mL (0.00-0.029) 05/21/20 00:23 Results - Labs CBC & Chem 7: 05/27/20 05:38 05/27/20 05:38 Labs: Laboratory Last Values WBC 11.3 K/mm3 (4.5-11.0) H 05/26/20 05:16 RBC 3.67 M/mm3 (3.65-5.03) 05/26/20 05:16 Hgb 10.7 gm/dl (11.8-15.2) L 05/27/20 05:38 Hct 32.1 % (35.5-45.6) L 05/27/20 05:38 MCV 83 fl (84-94) L 05/26/20 05:16 MCH 27 pg (28-32) L 05/26/20 05:16 MCHC 33 % (32-34) 05/26/20 05:16 RDW 15.0 % (13.2-15.2) 05/26/20 05:16 Plt Count 390 K/mm3 (140-440) 05/27/20 05:38 Lymph % (Auto) 29.9 % (13.4-35.0) 05/26/20 05:16 [place] % (Auto) 13.1 % (0.0-7.3) H 05/26/20 05:16 Eos % (Auto) 4.2 % (0.0-4.3) 05/26/20 05:16 Baso % (Auto) 1.3 % (0.0-1.8) 05/26/20 05:16 Lymph # (Auto) 3.4 K/mm3 (1.2-5.4) 05/26/20 05:16 [place] # (Auto) 1.5 K/mm3 (0.0-0.8) H 05/26/20 05:16 Eos # (Auto) 0.5 K/mm3 (0.0-0.4) H 05/26/20 05:16 Baso # (Auto) 0.1 K/mm3 (0.0-0.1) 05/26/20 05:16 Seg Neutrophils % 51.5 % (40.0-70.0) 05/26/20 05:16 Seg Neutrophils # 5.8 K/mm3 (1.8-7.7) 05/26/20 05:16 PT 13.0 Sec. (12.2-14.9) 05/21/20 13:52 INR 0.99 (0.87-1.13) 05/21/20 13:52 APTT 27.8 Sec. (24.2-36.6) 05/21/20 13:52 D-Dimer 1321.92 ng/mlDDU (0-234) H 05/25/20 05:47 Heparin Anti-Xa Level < 0.10 U.I./ml (0.3-0.7) L 05/26/20 05:16 Sodium 134 mmol/L (137-145) L 05/27/20 05:38 Potassium 3.8 mmol/L (3.6-5.0) 05/27/20 05:38 Chloride 97.8 mmol/L (98-107) L 05/27/20 05:38 Carbon Dioxide 30 mmol/L (22-30) 05/27/20 05:38 Anion Gap 10 mmol/L 05/27/20 05:38 BUN 15 mg/dL (9-20) 05/27/20 05:38 Creatinine 0.8 mg/dL (0.8-1.3) 05/27/20 05:38 Estimated GFR > 60 ml/min 05/27/20 05:38 BUN/Creatinine Ratio 19 % 05/27/20 05:38 Glucose 92 mg/dL (75-100) 05/27/20 05:38 Hemoglobin A1c 5.5 % (4-6) 05/21/20 03:00 Lactic Acid 1.00 mmol/L (0.7-2.0) 05/21/20 03:00 Calcium 8.1 mg/dL (8.4-10.2) L 05/27/20 05:38 Phosphorus 4.10 mg/dL (2.5-4.5) 05/25/20 05:47 Magnesium 2.10 mg/dL (1.7-2.3) 05/25/20 05:47 Ferritin 265.5 ng/mL (30.0-300.0) 05/25/20 05:47 Total Bilirubin < 0.20 mg/dL (0.1-1.2) 05/20/20 16:42 AST 10 units/L (5-40) 05/20/20 16:42 ALT 6 units/L (7-56) L 05/20/20 16:42 Alkaline Phosphatase 79 units/L (35-129) 05/20/20 16:42 Lactate Dehydrogenase 171 units/L (91-180) 05/25/20 05:47 Troponin T < 0.010 ng/mL (0.00-0.029) 05/21/20 00:23 C-Reactive Protein 1.60 mg/dL (0.00-1.30) H 05/25/20 05:47 NT-Pro-B Natriuret Pep 119.3 pg/mL (0-450) 05/20/20 19:59 Total Protein 4.6 g/dL (6.3-8.2) L 05/20/20 16:42 Albumin 1.6 g/dL (3.9-5) L 05/20/20 16:42 Albumin/Globulin Ratio 0.5 % 05/20/20 16:42 TSH 4.210 mlU/mL (0.270-4.200) H 05/22/20 13:44 Free T4 0.75 ng/dL (0.76-1.46) L 05/22/20 13:44 Urine Color Yellow (Yellow) 05/21/20 09:30 Urine Turbidity Hazy (Clear) 05/21/20 09:30 Urine pH 6.0 (5.0-7.0) 05/21/20 09:30 Ur Specific [place] 1.010 (1.003-1.030) 05/21/20 09:30 Urine Protein 100 mg/dl mg/dL (Negative) 05/21/20 09:30 Urine Glucose (UA) Neg mg/dL (Negative) 05/21/20 09:30 Urine Ketones Neg mg/dL (Negative) 05/21/20 09:30 Urine Blood Mod (Negative) 05/21/20 09:30 Urine Nitrite Neg (Negative) 05/21/20 09:30 Urine Bilirubin Neg (Negative) 05/21/20 09:30 Urine Urobilinogen < 2.0 mg/dL (<2.0) 05/21/20 09:30 Ur Leukocyte Esterase Neg (Negative) 05/21/20 09:30 Urine WBC (Auto) 4.0 /HPF (0.0-6.0) 05/21/20 09:30 Urine RBC (Auto) 10.0 /HPF (0.0-6.0) 05/21/20 09:30 U Epithel Cells (Auto) < 1.0 /HPF (0-13.0) 05/21/20 09:30 Urine Creatinine 130.6 mg/dL (0.1-20.0) H 05/23/20 22:37 Protein/Creatinin Ratio 4.04 05/23/20 22:37 Urine Total Protein 528 mg/dL (5-11.8) H 05/23/20 22:37 Urine Opiates Screen Negative 05/21/20 09:30 Urine Methadone Screen Negative 05/21/20 09:30 Ur Barbiturates Screen Negative 05/21/20 09:30 Ur Phencyclidine Scrn Negative 05/21/20 09:30 Ur Amphetamines Screen Negative 05/21/20 09:30 U Benzodiazepines Scrn Negative 05/21/20 09:30 Urine Cocaine Screen Negative 05/21/20 09:30 U Marijuana (THC) Screen Negative 05/21/20 09:30 Drugs of Abuse Note Disclamer 05/21/20 09:30 Coronavirus (PCR) Negative (Negative) 05/26/20 Unknown Hepatitis A IgM Ab Non-reactive (NonReactive) 05/25/20 05:47 Hep Bs Antigen Non-reactive (Negative) 05/25/20 05:47 Hep B Core IgM Ab Non-reactive (NonReactive) 05/25/20 05:47 Hepatitis C Antibody Non-reactive (NonReactive) 05/25/20 05:47 Microbiology: Microbiology 05/21/20 04:45 Peripheral/Venous Blood Culture - Final NO GROWTH AFTER 5 DAYS Moe/IV: Voiding Method Bedpan Active Medications - Current Medications Current Medications: Generic Name Dose Route Start Last Admin Trade Name Freq PRN Reason Stop Dose Admin Albuterol 2.5 mg 05/21/20 02:37 Albuterol 2.5 Mg/3 Ml Nebu IH Q4HRT PRN Shortness Of Breath Bupropion HCl 100 mg 05/21/20 10:00 05/27/20 09:45 Bupropion 100 Mg Tab PO 100 mg DAILY LAURY Administration Furosemide 80 mg 05/24/20 12:35 05/27/20 05:14 Furosemide 100 Mg/10 Ml Inj IV 80 mg BID@0600,1800 LAURY Administration Lisinopril 10 mg 05/21/20 10:00 05/27/20 09:45 Lisinopril 10 Mg Tab PO 10 mg QDAY LAURY Administration Lorazepam 1 mg 05/24/20 11:00 Lorazepam 2 Mg/Ml Vial IV Q8H PRN Agitation Metolazone 5 mg 05/24/20 11:00 05/27/20 09:45 Metolazone 5 Mg Tab PO 5 mg QDAY LAURY Administration Nicotine 14 mg 05/21/20 02:58 Nicotine 14 Mg/24 Hr Patch TD QDAY PRN smoking cessation
--- NOTE | 2020-05-27 12:22 | Progress Note ---
Assessment and Plan 1. Nephrotic syndrome: Presented with edema and hypoalbuminemia. Urine Protein: 4 gms Could be related to morbid obesity. Suspected GN. NABIL, ANCA, Complements, SPEP and Hepatitis Panel ordered. Renal function is normal. On Lisinopril. Avoid nephrotoxic agents. Patient refusing kidney biopsy. 2. FEN: Volume overload, IV Lasix and Metolazone. Strict I/Os. Monitor lytes and volume status. 3. Acute hypoxic respiratory failure:- Monitor. CTA negative for PE. 4. HFpEF: Lasix and Metolazone. 5. Elevated D-dimer: CTA chest negative for PE. Monitor. 6. Sinus pause/transient second-degree AV block: Resolved after discontinuation of AV alisson blocking agent. Followed by Cardiology. 7. Leukocytosis: Monitor. 8. Schizophrenia/bipolar disorder. 9. Tobacco abuse. Subjective: Patient was seen and examined at the bedside. Objective: General appearance: well-developed, appears stated age, not in distress, obese HEENT: ATNC Neck: trachea midline Respiratory: ctab Heart: regular, S1S2, no murmur Abdomen: soft, obese, normoactive bowel sounds, not tender Integumentary: no rash, warm and dry Ext: 2+ LE edema, scrotal edema noted Neurologic: alert, able to move extremities Subjective Date of service: 05/27/20 Principal diagnosis: anasarca Objective - Vital Signs Vital signs: Vital Signs - 12hr 05/27/20 05/27/20 05/27/20 02:00 04:16 08:03 Temperature 97.6 F 98.4 F Pulse Rate 85 86 Pulse Rate [ Apical] Respiratory 14 18 18 Rate Blood Pressure 126/61 133/68 O2 Sat by Pulse 100 100 96 Oximetry 05/27/20 05/27/20 10:00 11:59 Temperature 97.9 F Pulse Rate 95 H 99 H Pulse Rate [ 95 H Apical] Respiratory 18 Rate Blood Pressure 148/79 O2 Sat by Pulse 91 Oximetry - Lab 05/27/20 05:38 05/27/20 05:38 Most recent lab results Calcium 8.1 mg/dL (8.4-10.2) L 05/27/20 05:38 Phosphorus 4.10 mg/dL (2.5-4.5) 05/25/20 05:47 Magnesium 2.10 mg/dL (1.7-2.3) 05/25/20 05:47 Urine Creatinine 130.6 mg/dL (0.1-20.0) H 05/23/20 22:37 Urine Total Protein 528 mg/dL (5-11.8) H 05/23/20 22:37 Medications & Allergies - Medications Allergies/Adverse Reactions: Allergies No Known Allergies Allergy (Verified 12/20/19 03:26) Home Medications: Home Medications Medication Instructions Recorded Confirmed Last Taken Type Paliperidone Palmitate [Invega 156 mg IM QMONTH 12/20/19 05/21/20 05/10/20 History Sustenna] Divalproex ER [DepaKOTE ER] 1,500 mg PO QHS 05/21/20 05/21/20 05/19/20 History Active Medications: Generic Name Dose Route Start Last Admin Trade Name Freq PRN Reason Stop Dose Admin Albuterol 2.5 mg 05/21/20 02:37 Albuterol 2.5 Mg/3 Ml Nebu IH Q4HRT PRN Shortness Of Breath Bupropion HCl 100 mg 05/21/20 10:00 05/27/20 09:45 Bupropion 100 Mg Tab PO 100 mg DAILY LAURY Administration Furosemide 80 mg 05/24/20 12:35 05/27/20 05:14 Furosemide 100 Mg/10 Ml Inj IV 80 mg BID@0600,1800 LAURY Administration Lisinopril 10 mg 05/21/20 10:00 05/27/20 09:45 Lisinopril 10 Mg Tab PO 10 mg QDAY LAURY Administration Lorazepam 1 mg 05/24/20 11:00 Lorazepam 2 Mg/Ml Vial IV Q8H PRN Agitation Metolazone 5 mg 05/24/20 11:00 05/27/20 09:45 Metolazone 5 Mg Tab PO 5 mg QDAY LAURY Administration Nicotine 14 mg 05/21/20 02:58 Nicotine 14 Mg/24 Hr Patch TD QDAY PRN smoking cessation
[2020-05-28] MEDS: FUROSEMIDE 100 MG/10 ML INJ IV SCH ×2 (06:03→17:18)
[2020-05-28 07:34] LABS: Blood Urea Nitrogen 17 mg/dL (9-20); Hemolysis Index 81
[2020-05-28 07:48] LABS: BUN/Creatinine Ratio 24
--- NOTE | 2020-05-28 09:28 | Progress Note ---
Assessment and Plan Assessment and plan: 29-year-old obese -[place] male with history of schizophrenia and bipolar disorder who presents to [facility] via EMS with complaints of difficulty in breathing and generalized edema. Patient was taking Hydroxycut (OTC weight loss supplement) approximately 2 weeks ago, believes this has something to do with this anasarca. Patient admitted for heart failure work-up. Acute hypoxic respiratory failure Nephrotic syndrome Hypoalbuminemia. Chronic diastolic heart failure Elevated D-dimer Sinus pause/transient second-degree AV block. Anasarca Leukocytosis Schizophrenia/bipolar disorder Tobacco abuse Hospital course: 05/21 patient seen, continues to have significant anasarca. Patient is refusing Moe catheter. 05/22. Left ventricular systolic function normal with EF of 55 to 60%. Mild diastolic dysfunction. RVSP 27 mmHg. Await cardiology evaluation. Continue Lasix, Coreg. Await CTA of the chest given elevated D-dimer. Continue empiric IV heparin for now. Patient with probable JONA/OHS. Covid testing negative. 05/23. Patient unable to do CTA of the chest or VQ scan because inability to lie flat on the table. Nephrology consulted for anasarca and severe hypoalbumin emia. Continue empiric IV heparin. Patient reportedly with several sinus pauses (longest pause 4 sec) and transient second degree type II AV block noted yesterday. AV alisson blocking agents discontinued 05/24 patient now in agreement to continue to try CT scan. Along with Ativan and uplifting of his scrotum. No further pauses at this time after AV alisson blocking agent discontinued. At present remains hemodynamically stable. 05/25. CTA of the chest negative for PE. However, patchy parenchymal changes both lower lobes, small bilateral pleural effusions with concern for pneumonia. Patient does have elevated D-dimer. Check other inflammatory markers and COVID- 19 testing. Nephrology following for nephrotic syndrome 05/26. Discontinue heparin given negative CTA of chest. COVID-19 testing negative on 05/21/2020. AV alisson blocking agents discontinued given sinus pauses and transient second-degree AV block. Continue to monitor on telemetry. Nephrology suspects nephrotic syndrome. Urine protein 4 g. ? Glomerulonephritis. Follow-up NABIL, ANCA, Complements, SPEP and Hepatitis Panel ordered. Cardiology reports diastolic heart failure not severe enough to cause the degree of anasarca. 05/27. Nephrology suspects nephrotic syndrome. Urine protein 4 g. ? Glomerulonephritis. Follow-up NABIL, ANCA, Complements, SPEP and Hepatitis Panel negative. AV alisson blocking agents discontinued given sinus pauses and transient second-degree AV block. Continue to monitor on telemetry. 05/28. Nephrology suspects nephrotic syndrome. Urine protein 4 g. ? Glomerulonephritis. Follow-up NABIL, ANCA, Complements, SPEP and Hepatitis Panel negative. AV alisson blocking agents discontinued given sinus pauses and transient second-degree AV block. Continue to monitor on telemetry. Physical therapy recommends home health PT. History Interval history: 29-year-old obese -[place] male with history of schizophrenia and bipolar disorder who presents to [facility] via EMS with complaints of difficulty in breathing and generalized edema. Patient was taking Hydroxycut (OTC weight loss supplement) approximately 2 weeks ago, believes this has something to do with this anasarca. Patient admitted for heart failure work-up. No new issues overnight Hospitalist Physical - Constitutional Vitals: Temp Pulse Resp BP Pulse Ox 98.3 F 86 20 113/71 97 05/28/20 08:21 05/28/20 08:21 05/28/20 08:21 05/28/20 08:21 05/28/20 08:21 General appearance: Present: no acute distress, obese - EENT Eyes: Present: PERRL, EOM intact ENT: hearing intact, clear oral mucosa, dentition normal - Neck Neck: Present: supple, normal ROM - Respiratory Respiratory effort: normal Respiratory: bilateral: CTA - Cardiovascular Rhythm: regular Heart Sounds: Present: S1 & S2. Absent: gallop, rub - Extremities Extremities: no ischemia, No edema, Full ROM - Abdominal General gastrointestinal: soft, non-tender, non-distended, normal bowel sounds - Integumentary Integumentary: Present: clear, warm, dry - Neurologic Neurologic: CNII-XII intact, moves all extremities HEART Score - HEART Score Troponin: Troponin T < 0.010 ng/mL (0.00-0.029) 05/21/20 00:23 Results - Labs CBC & Chem 7: 05/27/20 05:38 05/28/20 05:27 Labs: Laboratory Last Values WBC 11.3 K/mm3 (4.5-11.0) H 05/26/20 05:16 RBC 3.67 M/mm3 (3.65-5.03) 05/26/20 05:16 Hgb 10.7 gm/dl (11.8-15.2) L 05/27/20 05:38 Hct 32.1 % (35.5-45.6) L 05/27/20 05:38 MCV 83 fl (84-94) L 05/26/20 05:16 MCH 27 pg (28-32) L 05/26/20 05:16 MCHC 33 % (32-34) 05/26/20 05:16 RDW 15.0 % (13.2-15.2) 05/26/20 05:16 Plt Count 390 K/mm3 (140-440) 05/27/20 05:38 Lymph % (Auto) 29.9 % (13.4-35.0) 05/26/20 05:16 [place] % (Auto) 13.1 % (0.0-7.3) H 05/26/20 05:16 Eos % (Auto) 4.2 % (0.0-4.3) 05/26/20 05:16 Baso % (Auto) 1.3 % (0.0-1.8) 05/26/20 05:16 Lymph # (Auto) 3.4 K/mm3 (1.2-5.4) 05/26/20 05:16 [place] # (Auto) 1.5 K/mm3 (0.0-0.8) H 05/26/20 05:16 Eos # (Auto) 0.5 K/mm3 (0.0-0.4) H 05/26/20 05:16 Baso # (Auto) 0.1 K/mm3 (0.0-0.1) 05/26/20 05:16 Seg Neutrophils % 51.5 % (40.0-70.0) 05/26/20 05:16 Seg Neutrophils # 5.8 K/mm3 (1.8-7.7) 05/26/20 05:16 PT 13.0 Sec. (12.2-14.9) 05/21/20 13:52 INR 0.99 (0.87-1.13) 05/21/20 13:52 APTT 27.8 Sec. (24.2-36.6) 05/21/20 13:52 D-Dimer 1321.92 ng/mlDDU (0-234) H 05/25/20 05:47 Heparin Anti-Xa Level < 0.10 U.I./ml (0.3-0.7) L 05/26/20 05:16 Sodium 130 mmol/L (137-145) L 05/28/20 05:27 Potassium 4.6 mmol/L (3.6-5.0) D 05/28/20 05:27 Chloride 97.6 mmol/L (98-107) L 05/28/20 05:27 Carbon Dioxide 20 mmol/L (22-30) L D 05/28/20 05:27 Anion Gap 17 mmol/L 05/28/20 05:27 BUN 17 mg/dL (9-20) 05/28/20 05:27 Creatinine 0.7 mg/dL (0.8-1.3) L 05/28/20 05:27 Estimated GFR > 60 ml/min 05/28/20 05:27 BUN/Creatinine Ratio 24 % 05/28/20 05:27 Glucose 74 mg/dL (75-100) L 05/28/20 05:27 Hemoglobin A1c 5.5 % (4-6) 05/21/20 03:00 Lactic Acid 1.00 mmol/L (0.7-2.0) 05/21/20 03:00 Calcium 8.0 mg/dL (8.4-10.2) L 05/28/20 05:27 Phosphorus 4.10 mg/dL (2.5-4.5) 05/25/20 05:47 Magnesium 2.10 mg/dL (1.7-2.3) 05/25/20 05:47 Ferritin 265.5 ng/mL (30.0-300.0) 05/25/20 05:47 Total Bilirubin < 0.20 mg/dL (0.1-1.2) 05/20/20 16:42 AST 10 units/L (5-40) 05/20/20 16:42 ALT 6 units/L (7-56) L 05/20/20 16:42 Alkaline Phosphatase 79 units/L (35-129) 05/20/20 16:42 Lactate Dehydrogenase 171 units/L (91-180) 05/25/20 05:47 Troponin T < 0.010 ng/mL (0.00-0.029) 05/21/20 00:23 C-Reactive Protein 1.60 mg/dL (0.00-1.30) H 05/25/20 05:47 NT-Pro-B Natriuret Pep 119.3 pg/mL (0-450) 05/20/20 19:59 Total Protein 4.6 g/dL (6.3-8.2) L 05/20/20 16:42 Albumin 1.6 g/dL (3.9-5) L 05/20/20 16:42 Albumin/Globulin Ratio 0.5 % 05/20/20 16:42 Procalcitonin 0.08 ng/mL (<0.15) 05/26/20 14:28 TSH 4.210 mlU/mL (0.270-4.200) H 05/22/20 13:44 Free T4 0.75 ng/dL (0.76-1.46) L 05/22/20 13:44 Urine Color Yellow (Yellow) 05/21/20 09:30 Urine Turbidity Hazy (Clear) 05/21/20 09:30 Urine pH 6.0 (5.0-7.0) 05/21/20 09:30 Ur Specific [place] 1.010 (1.003-1.030) 05/21/20 09:30 Urine Protein 100 mg/dl mg/dL (Negative) 05/21/20 09:30 Urine Glucose (UA) Neg mg/dL (Negative) 05/21/20 09:30 Urine Ketones Neg mg/dL (Negative) 05/21/20 09:30 Urine Blood Mod (Negative) 05/21/20 09:30 Urine Nitrite Neg (Negative) 05/21/20 09:30 Urine Bilirubin Neg (Negative) 05/21/20 09:30 Urine Urobilinogen < 2.0 mg/dL (<2.0) 05/21/20 09:30 Ur Leukocyte Esterase Neg (Negative) 05/21/20 09:30 Urine WBC (Auto) 4.0 /HPF (0.0-6.0) 05/21/20 09:30 Urine RBC (Auto) 10.0 /HPF (0.0-6.0) 05/21/20 09:30 U Epithel Cells (Auto) < 1.0 /HPF (0-13.0) 05/21/20 09:30 Urine Creatinine 130.6 mg/dL (0.1-20.0) H 05/23/20 22:37 Protein/Creatinin Ratio 4.04 05/23/20 22:37 Urine Total Protein 528 mg/dL (5-11.8) H 05/23/20 22:37 Urine Opiates Screen Negative 05/21/20 09:30 Urine Methadone Screen Negative 05/21/20 09:30 Ur Barbiturates Screen Negative 05/21/20 09:30 Ur Phencyclidine Scrn Negative 05/21/20 09:30 Ur Amphetamines Screen Negative 05/21/20 09:30 U Benzodiazepines Scrn Negative 05/21/20 09:30 Urine Cocaine Screen Negative 05/21/20 09:30 U Marijuana (THC) Screen Negative 05/21/20 09:30 Drugs of Abuse Note Disclamer 05/21/20 09:30 Coronavirus (PCR) Negative (Negative) 05/26/20 Unknown Hepatitis A IgM Ab Non-reactive (NonReactive) 05/25/20 05:47 Hep Bs Antigen Non-reactive (Negative) 05/25/20 05:47 Hep B Core IgM Ab Non-reactive (NonReactive) 05/25/20 05:47 Hepatitis C Antibody Non-reactive (NonReactive) 05/25/20 05:47 Moe/IV: Voiding Method Urinal Active Medications - Current Medications Current Medications: Generic Name Dose Route Start Last Admin Trade Name Freq PRN Reason Stop Dose Admin Albuterol 2.5 mg 05/21/20 02:37 Albuterol 2.5 Mg/3 Ml Nebu IH Q4HRT PRN Shortness Of Breath Bupropion HCl 100 mg 05/21/20 10:00 05/27/20 09:45 Bupropion 100 Mg Tab PO 100 mg DAILY LAURY Administration Furosemide 80 mg 05/24/20 12:35 05/28/20 06:03 Furosemide 100 Mg/10 Ml Inj IV 80 mg BID@0600,1800 LAURY Administration Lisinopril 20 mg 05/28/20 10:00 Lisinopril 20 Mg Tab PO QDAY LAURY Lorazepam 1 mg 05/24/20 11:00 Lorazepam 2 Mg/Ml Vial IV Q8H PRN Agitation Metolazone 5 mg 05/24/20 11:00 05/27/20 09:45 Metolazone 5 Mg Tab PO 5 mg QDAY LAURY Administration Nicotine 14 mg 05/21/20 02:58 Nicotine 14 Mg/24 Hr Patch TD QDAY PRN smoking cessation Nutrition/Malnutrition Assess - Dietary Evaluation Nutrition/Malnutrition Findings: Nutrition Notes Start: 05/27/20 11:37 Freq: Status: Active Protocol: Document 05/27/20 11:37 LP (Rec: 05/27/20 11:38 LP [id number]) Nutrition Notes Need for Assessment generated from: LOS Initial or Follow up Brief Note Subjective/Other Information Screen for LOS. Pt consuming 100% of meals. Nutrition Intervention Revisit per MD consult or patient Sign Off request:
[2020-05-28] MEDS: LISINOPRIL 20 MG TAB PO SCH (09:46)
[2020-05-28] MEDS: metOLazone 5 MG TAB PO SCH (09:47)
[2020-05-28] MEDS: buPROPion 100 MG TAB PO SCH (09:47)
--- NOTE | 2020-05-28 10:32 | Progress Note ---
Assessment and Plan 1. Nephrotic syndrome: Presented with edema and hypoalbuminemia. Urine Protein: 4 gms Could be related to morbid obesity. Suspected GN. Hepatitis Panel negative. NABIL, ANCA, Complements, SPEP and GBM Ab pending. Renal function is normal. Lisinopril increased. Avoid nephrotoxic agents. Patient refusing kidney biopsy. 2. FEN: Volume overload, improving with IV Lasix and Metolazone. Strict I/Os. Monitor lytes and volume status. 3. Acute hypoxic respiratory failure:- Monitor. CTA negative for PE. 4. HFpEF: Lasix and Metolazone. 5. Elevated D-dimer: CTA chest negative for PE. Monitor. 6. Sinus pause/transient second-degree AV block: Resolved after discontinuation of AV alisson blocking agent. Followed by Cardiology. 7. Leukocytosis: Monitor. 8. Schizophrenia/bipolar disorder. 9. Tobacco abuse. Subjective: Patient was seen and examined at the bedside. Objective: General appearance: well-developed, appears stated age, not in distress, obese HEENT: ATNC Neck: trachea midline Respiratory: ctab Heart: regular, S1S2, no murmur Abdomen: soft, obese, normoactive bowel sounds, not tender Integumentary: no rash, warm and dry Ext: 2+ LE edema, scrotal edema noted Neurologic: alert, able to move extremities Subjective Date of service: 05/28/20 Principal diagnosis: anasarca Objective - Vital Signs Vital signs: Vital Signs - 12hr 05/27/20 05/27/20 05/28/20 23:06 23:40 03:20 Temperature 99.5 F 98.3 F Pulse Rate 110 H 92 H 79 Respiratory 17 16 16 Rate Blood Pressure 152/76 121/67 O2 Sat by Pulse 94 100 99 Oximetry 05/28/20 05/28/20 08:21 09:46 Temperature 98.3 F Pulse Rate 86 117 H Respiratory 20 Rate Blood Pressure 113/71 135/63 O2 Sat by Pulse 97 Oximetry - Lab 05/27/20 05:38 05/28/20 05:27 Most recent lab results Calcium 8.0 mg/dL (8.4-10.2) L 05/28/20 05:27 Phosphorus 4.10 mg/dL (2.5-4.5) 05/25/20 05:47 Magnesium 2.10 mg/dL (1.7-2.3) 05/25/20 05:47 Urine Creatinine 130.6 mg/dL (0.1-20.0) H 05/23/20 22:37 Urine Total Protein 528 mg/dL (5-11.8) H 05/23/20 22:37 Medications & Allergies - Medications Allergies/Adverse Reactions: Allergies No Known Allergies Allergy (Verified 12/20/19 03:26) Home Medications: Home Medications Medication Instructions Recorded Confirmed Last Taken Type Paliperidone Palmitate [Invega 156 mg IM QMONTH 12/20/19 05/21/20 05/10/20 History Sustenna] Divalproex ER [DepaKOTE ER] 1,500 mg PO QHS 05/21/20 05/21/20 05/19/20 History Active Medications: Generic Name Dose Route Start Last Admin Trade Name Freq PRN Reason Stop Dose Admin Albuterol 2.5 mg 05/21/20 02:37 Albuterol 2.5 Mg/3 Ml Nebu IH Q4HRT PRN Shortness Of Breath Bupropion HCl 100 mg 05/21/20 10:00 05/28/20 09:47 Bupropion 100 Mg Tab PO 100 mg DAILY LAURY Administration Furosemide 80 mg 05/24/20 12:35 05/28/20 06:03 Furosemide 100 Mg/10 Ml Inj IV 80 mg BID@0600,1800 LAURY Administration Lisinopril 20 mg 05/28/20 10:00 05/28/20 09:46 Lisinopril 20 Mg Tab PO 20 mg QDAY LAURY Administration Lorazepam 1 mg 05/24/20 11:00 Lorazepam 2 Mg/Ml Vial IV Q8H PRN Agitation Metolazone 5 mg 05/24/20 11:00 05/28/20 09:47 Metolazone 5 Mg Tab PO 5 mg QDAY LAURY Administration Nicotine 14 mg 05/21/20 02:58 Nicotine 14 Mg/24 Hr Patch TD QDAY PRN smoking cessation
[2020-05-29] MEDS: FUROSEMIDE 100 MG/10 ML INJ IV SCH ×2 (05:32→18:27)
[2020-05-29 07:14] LABS: Hematocrit 33.4 % (35.5-45.6); Hemoglobin 11.4 gm/dl (11.8-15.2)
[2020-05-29 07:39] LABS: BUN/Creatinine Ratio 23; Blood Urea Nitrogen 21 mg/dL (9-20); Calcium 8.2 mg/dL (8.4-10.2); Hemolysis Index 29
--- NOTE | 2020-05-29 07:55 | Progress Note ---
Assessment and Plan 1. Nephrotic syndrome: Presented with edema and hypoalbuminemia. Urine Protein: 4 gms Could be related to morbid obesity. Suspected GN. Hepatitis Panel negative. NABIL, ANCA, Complements, SPEP and GBM Ab pending. Renal function is normal. Continue Lisinopril. Avoid nephrotoxic agents. Patient refusing kidney biopsy. 2. FEN: Volume overload, improving with IV Lasix and Metolazone. Strict I/Os. Limit fluid intake. Monitor lytes and volume status. 3. Acute hypoxic respiratory failure:- Monitor. CTA negative for PE. 4. HFpEF: Lasix and Metolazone. 5. Elevated D-dimer: CTA chest negative for PE. Monitor. 6. Sinus pause/transient second-degree AV block: Resolved after discontinuation of AV alisson blocking agent. Followed by Cardiology. 7. Leukocytosis: Monitor. 8. Schizophrenia/bipolar disorder. 9. Tobacco abuse. F/u with me in 1-2 weeks for lab results. Subjective: Patient was seen and examined at the bedside. Objective: General appearance: well-developed, appears stated age, not in distress, obese HEENT: ATNC Neck: trachea midline Respiratory: ctab Heart: regular, S1S2, no murmur Abdomen: soft, obese, normoactive bowel sounds, not tender Integumentary: no rash, warm and dry Ext: 1+ LE edema, scrotal edema has mostly improved Neurologic: alert, able to move extremities Subjective Date of service: 05/29/20 Principal diagnosis: anasarca Objective - Vital Signs Vital signs: Vital Signs - 12hr 05/28/20 05/28/20 05/28/20 22:00 23:11 23:16 Temperature 98.3 F Pulse Rate 105 H 112 H 87 Respiratory 18 14 18 Rate Blood Pressure 126/64 O2 Sat by Pulse 94 93 98 Oximetry 05/29/20 05/29/20 03:21 05:33 Temperature 98.6 F Pulse Rate 33 L 95 H Respiratory 16 Rate Blood Pressure 133/70 O2 Sat by Pulse 94 Oximetry - Lab 05/29/20 07:01 05/29/20 07:01 Most recent lab results Calcium 8.2 mg/dL (8.4-10.2) L 05/29/20 07:01 Phosphorus 4.10 mg/dL (2.5-4.5) 05/25/20 05:47 Magnesium 2.10 mg/dL (1.7-2.3) 05/25/20 05:47 Urine Creatinine 130.6 mg/dL (0.1-20.0) H 05/23/20 22:37 Urine Total Protein 528 mg/dL (5-11.8) H 05/23/20 22:37 Medications & Allergies - Medications Allergies/Adverse Reactions: Allergies No Known Allergies Allergy (Verified 12/20/19 03:26) Home Medications: Home Medications Medication Instructions Recorded Confirmed Last Taken Type Paliperidone Palmitate [Invega 156 mg IM QMONTH 12/20/19 05/21/20 05/10/20 History Sustenna] Divalproex ER [DepaKOTE ER] 1,500 mg PO QHS 05/21/20 05/21/20 05/19/20 History Furosemide [Lasix TAB] 80 mg PO BID #60 tablet 05/29/20 Unknown Rx lisinopriL [Zestril TAB] 20 mg PO QDAY #30 tablet 05/29/20 Unknown Rx metOLazone [Zaroxolyn] 5 mg PO QDAY #30 tablet 05/29/20 Unknown Rx Active Medications: Generic Name Dose Route Start Last Admin Trade Name Freq PRN Reason Stop Dose Admin Albuterol 2.5 mg 05/21/20 02:37 Albuterol 2.5 Mg/3 Ml Nebu IH Q4HRT PRN Shortness Of Breath Bupropion HCl 100 mg 05/21/20 10:00 05/28/20 09:47 Bupropion 100 Mg Tab PO 100 mg DAILY LAURY Administration Furosemide 80 mg 05/24/20 12:35 05/29/20 05:32 Furosemide 100 Mg/10 Ml Inj IV 80 mg BID@0600,1800 LAURY Administration Lisinopril 20 mg 05/28/20 10:00 05/28/20 09:46 Lisinopril 20 Mg Tab PO 20 mg QDAY LAURY Administration Lorazepam 1 mg 05/24/20 11:00 Lorazepam 2 Mg/Ml Vial IV Q8H PRN Agitation Metolazone 5 mg 05/24/20 11:00 05/28/20 09:47 Metolazone 5 Mg Tab PO 5 mg QDAY LAURY Administration Nicotine 14 mg 05/21/20 02:58 Nicotine 14 Mg/24 Hr Patch TD QDAY PRN smoking cessation
--- NOTE | 2020-05-29 10:48 | Discharge Summary ---
Providers - Providers Date of Admission: 05/20/20 18:26 Date of discharge: 05/30/20 Attending physician: KENNA MOSS 05/21/20 02:32 Consult to Physician [CONS] Routine Comment: dr. rajiv echavarria/ darya Consulting Provider: LIZETTE BLACKWELL Physician Instructions: Reason For Exam: pulmonary edema, ??new onset HF 05/21/20 02:43 Physical Therapy Evaluation and Treat [CONS] Routine Comment: Reason For Exam: Mobility assessment, high risk for fall 05/21/20 02:44 Occupational Therapy Evaluate and Treat [CONS] Routine Comment: Reason For Exam: Initial evaluation, high risk for fall, limited mo 05/23/20 08:09 Consult to Physician [CONS] Routine Comment: Consulting Provider: IWONA CHARLES Physician Instructions: Reason For Exam: hypoalbuminemia 05/27/20 07:17 Consult to Wound/ET Nurse [CONS] Routine Reason For Exam: head of pennis wound eval Primary care physician: SHIFT MGR Hospitalization Condition: Stable Hospital course: 29-year-old obese -[place] male with history of schizophrenia and bipolar disorder who presents to [facility] ED via EMS with complaints of difficulty in breathing and generalized edema. Patient complains of progressively worsening shortness of breath over the past 3 to 4 days. He states that he is on able to ambulate, or perform routine ADLs due to significant shortness of breath. Additionally he complains of generalized edema, which started in his lower extremities and has progressed up to his groin and abdomen. Endorses orthopnea, PND, and impaired mobility due to current state. Patient mentioned he started taking Hydroxycut (OTC weight loss supplement) approximately 2 weeks ago and thinks that this may have contributed to his shortness of breath and generalized edema. Denies: Cardiac history, palpitations, fever, abdominal pain, diarrhea, nausea, headache, sore throat, loss of smell/taste, recent fall/injury, recent sick contacts Hospital course: 05/21 patient seen, continues to have significant anasarca. Patient is refusing Moe catheter. 05/22. Left ventricular systolic function normal with EF of 55 to 60%. Mild diastolic dysfunction. RVSP 27 mmHg. Await cardiology evaluation. Continue Lasix, Coreg. Await CTA of the chest given elevated D-dimer. Continue empiric IV heparin for now. Patient with probable JONA/OHS. Covid testing negative. 05/23. Patient unable to do CTA of the chest or VQ scan because inability to lie flat on the table. Nephrology consulted for anasarca and severe hypoalbuminemia. Continue empiric IV heparin. Patient reportedly with several sinus pauses (longest pause 4 sec) and transient second degree type II AV block noted yesterday. AV alisson blocking agents discontinued 05/24 patient now in agreement to continue to try CT scan. Along with Ativan and uplifting of his scrotum. No further pauses at this time after AV alisson blocking agent discontinued. At present remains hemodynamically stable. 05/25. CTA of the chest negative for PE. However, patchy parenchymal changes both lower lobes, small bilateral pleural effusions with concern for pneumonia. Patient does have elevated D-dimer. Check other inflammatory markers and COVID-19 testing. Nephrology following for nephrotic syndrome 05/26. Discontinue heparin given negative CTA of chest. COVID-19 testing negative on 05/21/2020. AV alisson blocking agents discontinued given sinus pauses and transient second-degree AV block. Continue to monitor on telemetry. Nephrology suspects nephrotic syndrome. Urine protein 4 g. ? Glomerulonephritis. Follow-up NABIL, ANCA, Complements, SPEP and Hepatitis Panel ordered. Cardiology reports diastolic heart failure not severe enough to cause the degree of anasarca. 05/27. Nephrology suspects nephrotic syndrome. Urine protein 4 g. ? Glomerulonephritis. Follow-up NABIL, ANCA, Complements, SPEP and Hepatitis Panel negative. AV alisson blocking agents discontinued given sinus pauses and transient second-degree AV block. Continue to monitor on telemetry. 05/28. Nephrology suspects nephrotic syndrome. Urine protein 4 g. ? Glomerulonephritis. Follow-up NABIL, ANCA, Complements, SPEP and Hepatitis Panel negative. AV alisson blocking agents discontinued given sinus pauses and transient second-degree AV block. Continue to monitor on telemetry. Physical therapy recommends home health PT. 05/29. Patient is making good urine. He still refuses kidney biopsy. He is currently getting diuresed and is improving. He will be discharged on Lasix and metolazone to follow-up with nephrology in 2 weeks. He will also follow-up with cardiology in 2 weeks. Follow-up with pulmonology for evaluation of sleep study and need for CPAP also advised. He will going home with home health Disposition: [id number] TO HOME OR SELFCARE Final Discharge Diagnosis (Prints w/discharge instructions): Anasarca. Nephrotic syndrome Time spent for discharge: 40 minutes - Discharge Diagnoses (1) Anasarca Status: Acute (2) Pulmonary edema Status: Acute Qualifiers: Chronicity: acute Qualified Code(s): J81.0 - Acute pulmonary edema (3) Acute respiratory failure with hypoxia Status: Acute (4) Chronic diastolic heart failure Status: Acute Core Measure Documentation - Palliative Care Palliative Care/ Comfort Measures: Not Applicable - Core Measures Any of the following diagnoses?: none Exam - Constitutional Vitals: Temp Pulse Resp BP Pulse Ox 97.5 F L 80 18 122/73 99 05/29/20 07:57 05/29/20 07:57 05/29/20 07:57 05/29/20 07:57 05/29/20 08:42 General appearance: Present: no acute distress, well-nourished - EENT Eyes: Present: PERRL ENT: hearing intact, clear oral mucosa - Neck Neck: Present: supple, normal ROM - Respiratory Respiratory effort: normal Respiratory: bilateral: CTA - Cardiovascular Heart Sounds: Present: S1 & S2. Absent: rub, click - Extremities Extremities: pulses symmetrical Extremity abnormal: edema Peripheral Pulses: within normal limits - Abdominal General gastrointestinal: Present: soft, non-tender, non-distended, normal bowel sounds Male genitourinary: Present: normal - Integumentary Integumentary: Present: clear, warm, dry - Musculoskeletal Musculoskeletal: gait normal, strength equal bilaterally - Psychiatric Psychiatric: appropriate mood/affect, intact judgment & insight - Neurologic Neurologic: CNII-XII intact, moves all extremities Plan Diet: low salt, low protein Additional Instructions: Continue medications as ordered -Lasix 80 mg twice a day, metolazone 5 mg daily, lisinopril 20 mg daily. Follow-up with nephrology in the office in 2 weeks. Follow-up with cardiology in the office in 1 to 2 weeks. . Follow-up with pulmonology in the office for sleep study referral Follow up with: VIPIN WHITE MD [Primary Care Provider] - 3-5 Days IWONA CHARLES MD [Staff Physician] - 7 Days Prescriptions: Furosemide [Lasix TAB] 80 mg PO BID #60 tablet metOLazone [Zaroxolyn] 5 mg PO QDAY #30 tablet lisinopriL [Zestril TAB] 20 mg PO QDAY #30 tablet
[2020-05-29] MEDS: metOLazone 5 MG TAB PO SCH (11:08)
[2020-05-29] MEDS: LISINOPRIL 20 MG TAB PO SCH (11:08)
[2020-05-29] MEDS: buPROPion 100 MG TAB PO SCH (11:08)
[2020-05-30] MEDS: FUROSEMIDE 100 MG/10 ML INJ IV SCH (05:50)
[2020-05-30 08:16] VITALS: BP 111/72
[2020-05-30] MEDS: metOLazone 5 MG TAB PO SCH (09:35)
[2020-05-30] MEDS: LISINOPRIL 20 MG TAB PO SCH (09:35)
[2020-05-30] MEDS: buPROPion 100 MG TAB PO SCH (09:35)
--- NOTE | 2020-05-30 12:15 | Progress Note ---
Assessment and Plan Assessment and plan: 29-year-old obese -Citizen Of [place] male with history of schizophrenia and bipolar disorder who presents to [facility] ED via EMS with complaints of difficulty in breathing and generalized edema. Patient was taking Hydroxycut (OTC weight loss supplement) approximately 2 weeks ago, believes this has something to do with this anasarca. Patient admitted for heart failure work-up. Acute hypoxic respiratory failure Nephrotic syndrome Hypoalbuminemia. Chronic diastolic heart failure Elevated D-dimer Sinus pause/transient second-degree AV block. Anasarca Leukocytosis Schizophrenia/bipolar disorder Tobacco abuse Hospital course: 05/21 patient seen, continues to have significant anasarca. Patient is refusing Moe catheter. 05/22. Left ventricular systolic function normal with EF of 55 to 60%. Mild diastolic dysfunction. RVSP 27 mmHg. Await cardiology evaluation. Continue Lasix, Coreg. Await CTA of the chest given elevated D-dimer. Continue empiric IV heparin for now. Patient with probable JONA/OHS. Covid testing negative. 05/23. Patient unable to do CTA of the chest or VQ scan because inability to lie flat on the table. Nephrology consulted for anasarca and severe hypoalbumi nemia. Continue empiric IV heparin. Patient reportedly with several sinus pauses (longest pause 4 sec) and transient second degree type II AV block noted yesterday. AV alisson blocking agents discontinued 05/24 patient now in agreement to continue to try CT scan. Along with Ativan and uplifting of his scrotum. No further pauses at this time after AV alisson blocking agent discontinued. At present remains hemodynamically stable. 05/25. CTA of the chest negative for PE. However, patchy parenchymal changes both lower lobes, small bilateral pleural effusions with concern for pneumonia. Patient does have elevated D-dimer. Check other inflammatory markers and COVID- 19 testing. Nephrology following for nephrotic syndrome 05/26. Discontinue heparin given negative CTA of chest. COVID-19 testing negative on 05/21/2020. AV alisson blocking agents discontinued given sinus pauses and transient second-degree AV block. Continue to monitor on telemetry. Nephrology suspects nephrotic syndrome. Urine protein 4 g. ? Glomerulonephritis. Follow-up NABIL, ANCA, Complements, SPEP and Hepatitis Panel ordered. Cardiology reports diastolic heart failure not severe enough to cause the degree of anasarca. 05/27. Nephrology suspects nephrotic syndrome. Urine protein 4 g. ? Glomerulonephritis. Follow-up NABIL, ANCA, Complements, SPEP and Hepatitis Panel negative. AV alisson blocking agents discontinued given sinus pauses and transient second-degree AV block. Continue to monitor on telemetry. 05/28. Nephrology suspects nephrotic syndrome. Urine protein 4 g. ? Glomerulonephritis. Follow-up NABIL, ANCA, Complements, SPEP and Hepatitis Panel negative. AV alisson blocking agents discontinued given sinus pauses and transient second-degree AV block. Continue to monitor on telemetry. Physical therapy recommends home health PT. 05/29. Patient has been well diuresed. Discussed with nephrology who agrees with discharge to continue diuretics at home. He is no longer hypoxic and saturating well on room air. Will need to follow-up with train operator in the office in 1 to 2 weeks. He will also need to follow-up with pulmonology for reevaluation for CPAP/sleep study. Plan for discharge today but patient did not leave the hospital due to transportation issues. - Patient Problems (1) Anasarca Status: Acute (2) Pulmonary edema Status: Acute Qualifiers: Chronicity: acute Qualified Code(s): J81.0 - Acute pulmonary edema History Interval history: 29-year-old obese -Citizen Of [place] male with history of schizophrenia and bipolar disorder who presents to [facility] ED via EMS with complaints of difficulty in breathing and generalized edema. Patient was taking Hydroxycut (OTC weight loss supplement) approximately 2 weeks ago, believes this has something to do with this anasarca. Patient admitted for heart failure work-up. No new issues overnight Hospitalist Physical - Physical exam Narrative exam: VITAL SIGNS: Reviewed. GENERAL: Awake HEAD: No signs of head trauma. EYES: Pupils are equal. Extraocular motions intact. MOUTH: Oropharynx is normal. NECK: No adenopathy, no JVD. CHEST: Chest with diminished breath sounds bilaterally. No wheezes, rales, or rhonchi. CARDIAC: normal S1 and S2, without murmurs, gallops, or rubs. ABDOMEN: Soft, non tender and non distended. No rebound or guarding, and no masses palpated. Bowel Sounds normal. MUSCULOSKELETAL: Edema NEUROLOGIC EXAM: Alert and oriented x3. No focal neurologic deficits SKIN: No obvious lesions - Constitutional Vitals: Temp Pulse Resp BP Pulse Ox 97.6 F 96 H 18 111/72 99 05/30/20 08:13 05/30/20 08:13 05/30/20 08:13 05/30/20 08:13 05/30/20 09:16 HEART Score - HEART Score Troponin: Troponin T < 0.010 ng/mL (0.00-0.029) 05/21/20 00:23 Results - Labs CBC & Chem 7: 05/29/20 07:01 05/29/20 07:01 Labs: Laboratory Last Values WBC 11.3 K/mm3 (4.5-11.0) H 05/26/20 05:16 RBC 3.67 M/mm3 (3.65-5.03) 05/26/20 05:16 Hgb 11.4 gm/dl (11.8-15.2) L 05/29/20 07:01 Hct 33.4 % (35.5-45.6) L 05/29/20 07:01 MCV 83 fl (84-94) L 05/26/20 05:16 MCH 27 pg (28-32) L 05/26/20 05:16 MCHC 33 % (32-34) 05/26/20 05:16 RDW 15.0 % (13.2-15.2) 05/26/20 05:16 Plt Count 439 K/mm3 (140-440) 05/29/20 07:01 Lymph % (Auto) 29.9 % (13.4-35.0) 05/26/20 05:16 [place] % (Auto) 13.1 % (0.0-7.3) H 05/26/20 05:16 Eos % (Auto) 4.2 % (0.0-4.3) 05/26/20 05:16 Baso % (Auto) 1.3 % (0.0-1.8) 05/26/20 05:16 Lymph # (Auto) 3.4 K/mm3 (1.2-5.4) 05/26/20 05:16 [place] # (Auto) 1.5 K/mm3 (0.0-0.8) H 05/26/20 05:16 Eos # (Auto) 0.5 K/mm3 (0.0-0.4) H 05/26/20 05:16 Baso # (Auto) 0.1 K/mm3 (0.0-0.1) 05/26/20 05:16 Seg Neutrophils % 51.5 % (40.0-70.0) 05/26/20 05:16 Seg Neutrophils # 5.8 K/mm3 (1.8-7.7) 05/26/20 05:16 PT 13.0 Sec. (12.2-14.9) 05/21/20 13:52 INR 0.99 (0.87-1.13) 05/21/20 13:52 APTT 27.8 Sec. (24.2-36.6) 05/21/20 13:52 D-Dimer 1321.92 ng/mlDDU (0-234) H 05/25/20 05:47 Heparin Anti-Xa Level < 0.10 U.I./ml (0.3-0.7) L 05/26/20 05:16 Sodium 130 mmol/L (137-145) L 05/29/20 07:01 Potassium 4.3 mmol/L (3.6-5.0) 05/29/20 07:01 Chloride 96.7 mmol/L (98-107) L 05/29/20 07:01 Carbon Dioxide 24 mmol/L (22-30) 05/29/20 07:01 Anion Gap 14 mmol/L 05/29/20 07:01 BUN 21 mg/dL (9-20) H 05/29/20 07:01 Creatinine 0.9 mg/dL (0.8-1.3) 05/29/20 07:01 Estimated GFR > 60 ml/min 05/29/20 07:01 BUN/Creatinine Ratio 23 % 05/29/20 07:01 Glucose 99 mg/dL (75-100) 05/29/20 07:01 Hemoglobin A1c 5.5 % (4-6) 05/21/20 03:00 Lactic Acid 1.00 mmol/L (0.7-2.0) 05/21/20 03:00 Calcium 8.2 mg/dL (8.4-10.2) L 05/29/20 07:01 Phosphorus 4.10 mg/dL (2.5-4.5) 05/25/20 05:47 Magnesium 2.10 mg/dL (1.7-2.3) 05/25/20 05:47 Ferritin 265.5 ng/mL (30.0-300.0) 05/25/20 05:47 Total Bilirubin < 0.20 mg/dL (0.1-1.2) 05/20/20 16:42 AST 10 units/L (5-40) 05/20/20 16:42 ALT 6 units/L (7-56) L 05/20/20 16:42 Alkaline Phosphatase 79 units/L (35-129) 05/20/20 16:42 Lactate Dehydrogenase 171 units/L (91-180) 05/25/20 05:47 Troponin T < 0.010 ng/mL (0.00-0.029) 05/21/20 00:23 C-Reactive Protein 1.60 mg/dL (0.00-1.30) H 05/25/20 05:47 NT-Pro-B Natriuret Pep 119.3 pg/mL (0-450) 05/20/20 19:59 Total Protein 4.6 g/dL (6.3-8.2) L 05/20/20 16:42 Albumin 1.6 g/dL (3.9-5) L 05/20/20 16:42 Albumin/Globulin Ratio 0.5 % 05/20/20 16:42 Procalcitonin 0.08 ng/mL (<0.15) 05/26/20 14:28 TSH 4.210 mlU/mL (0.270-4.200) H 05/22/20 13:44 Free T4 0.75 ng/dL (0.76-1.46) L 05/22/20 13:44 Urine Color Yellow (Yellow) 05/21/20 09:30 Urine Turbidity Hazy (Clear) 05/21/20 09:30 Urine pH 6.0 (5.0-7.0) 05/21/20 09:30 Ur Specific [place] 1.010 (1.003-1.030) 05/21/20 09:30 Urine Protein 100 mg/dl mg/dL (Negative) 05/21/20 09:30 Urine Glucose (UA) Neg mg/dL (Negative) 05/21/20 09:30 Urine Ketones Neg mg/dL (Negative) 05/21/20 09:30 Urine Blood Mod (Negative) 05/21/20 09:30 Urine Nitrite Neg (Negative) 05/21/20 09:30 Urine Bilirubin Neg (Negative) 05/21/20 09:30 Urine Urobilinogen < 2.0 mg/dL (<2.0) 05/21/20 09:30 Ur Leukocyte Esterase Neg (Negative) 05/21/20 09:30 Urine WBC (Auto) 4.0 /HPF (0.0-6.0) 05/21/20 09:30 Urine RBC (Auto) 10.0 /HPF (0.0-6.0) 05/21/20 09:30 U Epithel Cells (Auto) < 1.0 /HPF (0-13.0) 05/21/20 09:30 Urine Creatinine 130.6 mg/dL (0.1-20.0) H 05/23/20 22:37 Protein/Creatinin Ratio 4.04 05/23/20 22:37 Urine Total Protein 528 mg/dL (5-11.8) H 05/23/20 22:37 Urine Opiates Screen Negative 05/21/20 09:30 Urine Methadone Screen Negative 05/21/20 09:30 Ur Barbiturates Screen Negative 05/21/20 09:30 Ur Phencyclidine Scrn Negative 05/21/20 09:30 Ur Amphetamines Screen Negative 05/21/20 09:30 U Benzodiazepines Scrn Negative 05/21/20 09:30 Urine Cocaine Screen Negative 05/21/20 09:30 U Marijuana (THC) Screen Negative 05/21/20 09:30 Drugs of Abuse Note Disclamer 05/21/20 09:30 Coronavirus (PCR) Negative (Negative) 05/26/20 Unknown Hepatitis A IgM Ab Non-reactive (NonReactive) 05/25/20 05:47 Hep Bs Antigen Non-reactive (Negative) 05/25/20 05:47 Hep B Core IgM Ab Non-reactive (NonReactive) 05/25/20 05:47 Hepatitis C Antibody Non-reactive (NonReactive) 05/25/20 05:47 Moe/IV: Voiding Method Urinal Nutrition/Malnutrition Assess - Dietary Evaluation Nutrition/Malnutrition Findings: Nutrition Notes Start: 05/27/20 11:37 Freq: Status: Discharge Protocol: Document 05/27/20 11:37 LP (Rec: 05/27/20 11:38 LP [email or web address]) Nutrition Notes Need for Assessment generated from: LOS Initial or Follow up Brief Note Subjective/Other Information Screen for LOS. Pt consuming 100% of meals. Nutrition Intervention Revisit per MD consult or patient Sign Off request:
[2020-05-30 17:43] LABS: Myeloperoxidase Antibody <1.0 AI (<1.0)
[2020-05-31 07:48] LABS: Albumin 1.4 g/dL (3.8-4.8); Gamma Globulin 0.4 g/dL (0.8-1.7)
== END 2020-05-30 11:27 | disposition home health service (06) | DRG 698 ==
LOC: ED 15:51 → 4A 18:26 → IMCU 05-21 00:12 → 4A 05-21 22:39
PROVIDERS: ADMIT Internal Medicine; ATTEND Internal Medicine
PROC: 5A09357 Assistance with Respiratory Ventilation, Less than 24 Consecutive Hours, Continuous Positive Airway Pressure (ICD-10-PCS; principal; 2020-05-22)
PROC: 5A09357 Assistance with Respiratory Ventilation, Less than 24 Consecutive Hours, Continuous Positive Airway Pressure (ICD-10-PCS; 2020-05-23)
PROC: 5A09357 Assistance with Respiratory Ventilation, Less than 24 Consecutive Hours, Continuous Positive Airway Pressure (ICD-10-PCS; 2020-05-24)
PROC: 5A09357 Assistance with Respiratory Ventilation, Less than 24 Consecutive Hours, Continuous Positive Airway Pressure (ICD-10-PCS; 2020-05-25)
PROC: 5A09357 Assistance with Respiratory Ventilation, Less than 24 Consecutive Hours, Continuous Positive Airway Pressure (ICD-10-PCS; 2020-05-26)
PROC: 5A09357 Assistance with Respiratory Ventilation, Less than 24 Consecutive Hours, Continuous Positive Airway Pressure (ICD-10-PCS; 2020-05-27)
PROC: 5A09357 Assistance with Respiratory Ventilation, Less than 24 Consecutive Hours, Continuous Positive Airway Pressure (ICD-10-PCS; 2020-05-28)
DX: N04.9 Nephrotic syndrome with unspecified morphologic changes (principal); J96.01 Acute respiratory failure with hypoxia; Z68.43 Body mass index [BMI] 50.0-59.9, adult; I50.32 Chronic diastolic (congestive) heart failure; E66.01 Morbid (severe) obesity due to excess calories; I44.1 Atrioventricular block, second degree; Z20.822 Contact with and (suspected) exposure to COVID-19; F17.200 Nicotine dependence, unspecified, uncomplicated; F20.9 Schizophrenia, unspecified; F31.9 Bipolar disorder, unspecified; Z79.899 Other long term (current) drug therapy
CPT/HCPCS: 36415; 71045; 71275; 80048; 80053; 80074; 80307; 81001; 82140; 82570; 82728; 83036; 83520; 83615; 83735; 83880; 84100; 84145; 84156; 84165; 84439; 84443; 84484; 85014; 85018; 85025; 85049; 85379; 85520; 85610; 85730; 86021; 86038; 86140; 86160; 87040; 93005; 93306; 94640; 94644; 94660; 94760; 96374; 96376; G0378; J1644; J1940; Q9967; U0003

== ENCOUNTER 2021-01-30 17:02 | Emergency (ER) | payer MEDICARE ==
--- NOTE | 2021-01-30 17:54 | Emergency Department Report ---
ED Psych HPI - General Chief Complaint: Psych Stated Complaint: BIPOLAR EPISODE Time Seen by Provider: 01/30/21 17:33 Source: EMS Mode of arrival: Ambulatory - History of Present Illness Initial Comments: Patient presents from a halfway secondary to psychiatric illness. He had a "bipolar episode." He became somewhat manic. He is not suicidal homicidal. Is not acting out at this time. He did think that there were problems with his blood and that he was dying. He does not believe that people are after him. He is not actively suicidal. He is calm and collected this time. He states that he was told that he needs blood work because he is dying. - Related Data Home Medications Medication Instructions Recorded Confirmed Last Taken Paliperidone Palmitate [Invega 156 mg IM QMONTH 12/20/19 01/30/21 01/09/21 10:00 Sustenna] Divalproex ER [Depakote ER] 250 mg PO QHS 05/21/20 01/30/21 05/19/20 Previous Rx's Medication Instructions Recorded Last Taken Type Furosemide [Lasix TAB] 80 mg PO BID #60 tablet 05/29/20 Unknown Rx lisinopriL [Zestril TAB] 20 mg PO QDAY #30 tablet 05/29/20 Unknown Rx AtorvaSTATin [Lipitor] 40 mg PO QHS #30 tablet 10/03/20 Unknown Rx Pantoprazole [Protonix TAB] 20 mg PO QDAY #30 tablet. 10/03/20 Unknown Rx Sodium Bicarbonate 650 mg PO TID #60 tablet 10/03/20 Unknown Rx Allergies Allergy/AdvReac Type Severity Reaction Status Date / Time No Known Allergies Allergy Verified 01/30/21 17:05 ED Review of Systems ROS: Stated complaint: BIPOLAR EPISODE Other details as noted in HPI Comment: All other systems reviewed and negative Constitutional: denies: fever Eyes: denies: vision change ENT: denies: throat pain Respiratory: denies: cough Cardiovascular: denies: chest pain Endocrine: denies: unexplained weight loss Gastrointestinal: denies: abdominal pain Genitourinary: denies: dysuria Musculoskeletal: denies: back pain Skin: denies: rash Neurological: denies: headache Hematological/Lymphatic: denies: easy bruising ED Past Medical Hx - Past Medical History Hx Hypertension: Yes Hx Congestive Heart Failure: Yes Hx Deep Vein Thrombosis: No Hx Renal Disease: Yes (Nephrotic syndrome) Hx Psychiatric Treatment: Yes (bipolar, schizophrenia) Additional medical history: TBI - Surgical History Hx Pacemaker: No Hx Internal Defibrillator: No - Social History Smoking Status: Never Smoker Substance Use Type: None - Medications Home Medications: Home Medications Medication Instructions Recorded Confirmed Last Taken Type Paliperidone Palmitate [Invega 156 mg IM QMONTH 12/20/19 01/30/21 01/09/21 10:00 History Sustenna] Divalproex ER [Depakote ER] 250 mg PO QHS 05/21/20 01/30/21 05/19/20 History Furosemide [Lasix TAB] 80 mg PO BID #60 tablet 05/29/20 01/30/21 Unknown Rx lisinopriL [Zestril TAB] 20 mg PO QDAY #30 tablet 05/29/20 01/30/21 Unknown Rx AtorvaSTATin [Lipitor] 40 mg PO QHS #30 tablet 10/03/20 01/30/21 Unknown Rx Pantoprazole [Protonix TAB] 20 mg PO QDAY #30 tablet. 10/03/20 01/30/21 Unknown Rx Sodium Bicarbonate 650 mg PO TID #60 tablet 10/03/20 01/30/21 Unknown Rx ED Physical Exam - General Limitations: Altered Mental Status, Other (Pulse ox noted and normal) General appearance: alert, in no apparent distress - Head Head exam: Present: atraumatic, normocephalic - Eye Eye exam: Present: normal appearance, PERRL - ENT ENT exam: Present: normal orophraynx, normal external ear exam - Neck Neck exam: Present: normal inspection. Absent: meningismus - Respiratory Respiratory exam: Present: normal lung sounds bilaterally. Absent: respiratory distress - Cardiovascular Cardiovascular Exam: Present: regular rate, normal rhythm - GI/Abdominal GI/Abdominal exam: Present: soft. Absent: tenderness - Extremities Exam Extremities exam: Present: normal capillary refill - Back Exam Back exam: Absent: CVA tenderness (R), CVA tenderness (L) - Neurological Exam Neurological exam: Present: alert, altered, CN II-XII intact, reflexes normal. Absent: motor sensory deficit - Psychiatric Psychiatric exam: Present: flat affect - Skin Skin exam: Present: warm, dry ED Course Vital Signs 01/30/21 01/30/21 17:03 17:34 Temperature 99 F Pulse Rate 120 H Respiratory 18 Rate Blood Pressure 122/86 [Left] O2 Sat by Pulse 96 100 Oximetry - Reevaluation(s) Reevaluation #1: 01/30/21 17:54 Old records reviewed. Labs ordered. 1013 started. Reevaluation #2: 01/30/21 19:35 Patient is now medically cleared. Psychiatric evaluation is pending. ED Medical Decision Making - Lab Data Result diagrams: 01/30/21 18:05 01/30/21 18:05 - Medical Decision Making Patient presented for psychiatric evaluation. His reports of a bipolar decompensation or episode. He appears to be appropriate at this time. He is in no respiratory stress. Patient will be seen by psychiatric services for ultimate disposition. He is not actively suicidal, homicidal, or aggressive. Critical Care Time: No Critical care attestation.: If time is entered above; I have spent that time in minutes in the direct care of this critically ill patient, excluding procedure time. ED Disposition Clinical Impression: Bipolar 1 disorder Disposition: 30 STILL A PATIENT Is pt being admited?: No Condition: Stable Referrals: PRIMARY CARE, [Primary Care Provider] - 3-5 Days
[2021-01-30 18:18] LABS: Amphetamine Screen,Urine Negative; Benzodiazepines Screen,Urine Negative; Cannabinoid Screen,Urine Negative; Cocaine Screen,Urine Negative; Methadone Screen,Urine Negative; Opiate Screen,Urine Negative
[2021-01-30 18:27] LABS: Basophils # (Auto) 0.1 K/mm3 (0.0-0.1); Basophils % (Auto) 0.8 % (0.0-1.8); Eosinophils # (Auto) 0.2 K/mm3 (0.0-0.4); Eosinophils % (Auto) 1.4 % (0.0-4.3); Hematocrit 32.4 % (35.5-45.6); Hemoglobin 10.8 gm/dl (11.8-15.2); Lymphocytes # (Auto) 3.4 K/mm3 (1.2-5.4); Lymphocytes % (Auto) 26.5 % (13.4-35.0); Mean Corpuscular HGB Conc 33 % (32-34); Mean Corpuscular Volume 82 fl (84-94); Monocytes # (Auto) 0.8 K/mm3 (0.0-0.8); Monocytes % (Auto) 6.2 % (0.0-7.3); Platelet Count 576 K/mm3 (140-440); Red Blood Count 3.96 M/mm3 (3.65-5.03); Red Cell Distribution Width 16.2 % (13.2-15.2)
[2021-01-30 18:43] LABS: Alanine Aminotransferase 19 units/L (7-56); Albumin 3.6 g/dL (3.9-5); BUN/Creatinine Ratio 43; Blood Urea Nitrogen 47 mg/dL (9-20); Calcium 9.3 mg/dL (8.4-10.2); Hemolysis Index 4
[2021-01-30] MEDS ORDERED: SODIUM BICARBONATE 650 MG TAB PO SCH (20:00)
[2021-01-30] MEDS ORDERED: PANTOPRAZOLE 20 MG TAB PO SCH (20:00)
[2021-01-30] MEDS ORDERED: LISINOPRIL 20 MG TAB PO SCH (20:00)
[2021-01-30] MEDS ORDERED: DIVALPROEX DR 250 MG TAB PO SCH (22:00)
[2021-01-30] MEDS ORDERED: FUROSEMIDE 40 MG TAB PO SCH (22:00)
[2021-01-30] MEDS ORDERED: NON-FORMULARY EACH (Furosemide [Lasix Tab] 80 MG Tablet) PO SCH (22:00)
[2021-01-30 22:34] VITALS: BP 121/60
== END 2021-01-30 22:35 ==
LOC: ED 17:02
DX: F31.9 Bipolar disorder, unspecified (principal); I11.0 Hypertensive heart disease with heart failure; I50.9 Heart failure, unspecified; F20.9 Schizophrenia, unspecified; Z79.899 Other long term (current) drug therapy
CPT/HCPCS: 36415; 80053; 80307; 80320; 85025; 99285; G0480